=== PATIENT | female | born 1985 | race Caucasian/White ===

== ENCOUNTER 2016-09-04 18:52 | Emergency (ER) | payer MEDICAID ==
[2016-09-04 19:16] VITALS: BP 118/70
[2016-09-04] MEDS ORDERED: Sodium Chloride 0.9% 10 ML Syringe FLUSH PRN (19:28)
[2016-09-04] MEDS ORDERED: Insulin Regular, Human 100 Units/ML 3 ML Vial IVPUSH ONE (20:22)
[2016-09-04] MEDS ORDERED: Sodium Chloride 0.9% 1,000 ML IV SCH (20:30)
--- NOTE | 2016-09-04 20:34 | EDM.PDOC ---
ED HPI NEURO - General Chief Complaint: Neurological Problem Stated Complaint: POSS SEIZURE Time Seen by Provider: 09/04/16 19:11 Source of Information: Reports: Patient, RN notes reviewed - History of Present Illness INITIAL COMMENTS - FREE TEXT/NARRATIVE: 31-year-old female has been brought to the emergency department by a friend reported to have had generalized seizure a short time ago. She is 31 weeks , had been feeling fine earlier today. She does have history of known seizure disorder. She states that she had been on Keppra previously for seizure control but that has been stopped some time ago when she "lost her insurance" she has been on Klonopin which she states had helped her with stress, anxiety but also provided seizure control. Her last seizure to her recollection was over one year ago. With her she has been slowly tapering down on her dosage and is now down to a half milligram twice daily. Her has been going okay with no reported recent difficulties. She has no abdominal pain cramping or spotting at this time. She states she had no warning for the seizure. She was just sitting watching a movie or preparing to watch a movie with a friend. She did not injure her tongue and was not incontinent of urine. She states she did have cereal for breakfast, had some snacks and jellybeans throughout the afternoon and had just eaten supper of porkchops and potato not long before the seizure occurred. At this point she feels mildly drowsier and tired. No chest pain or difficulty breathing. Mild to moderate headache. - Related Data Allergies/ADRs: Allergies Allergy/AdvReac Type Severity Reaction Status Date / Time vancomycin Allergy Severe Burning Verified 09/04/16 19:09 ketorolac tromethamine Allergy Hives Verified 09/04/16 19:09 [From Toradol] sumatriptan [From Imitrex] Allergy Hives Verified 09/04/16 19:09 sumatriptan succinate Allergy Hives Verified 09/04/16 19:09 [From Imitrex] aripiprazole [From Abilify] AdvReac Tachycardia Verified 09/04/16 19:09 metoclopramide HCl AdvReac Anxiety Verified 09/04/16 19:09 [From Reglan] NSAIDS (Non-Steroidal AdvReac Tachycardia Verified 09/04/16 19:09 Anti-Inflamma pindolol AdvReac Tachycardia Verified 09/04/16 19:09 prednisone AdvReac Muscle Verified 09/04/16 19:09 Weakness abel mattson AdvReac Dizziness Uncoded 09/04/16 19:09 Home Meds: Home Meds ClonazePAM [KlonoPIN] 1 mg PO DAILY 01/14/16 [History] #103/Iron Fumarate/Fa [ ] 1 each PO DAILY 06/18/16 [ History] Past Medical History HEENT History: Reports: Impaired vision Cardiovascular History: Reports: Arrhythmia Other Cardiovascular History: SVT Respiratory History: Reports: Bronchitis, recurrent, Pneumonia, recurrent Genitourinary History: Reports: Pyelonephritis, Renal calculus [employer] History: Reports: Ectopic , Neurological History: Reports: Migraines Psychiatric History: Reports: Anxiety, Depression, Panic attack, Suicide attempt - Infectious Disease History Infectious Disease History: Reports: Chicken pox Other Infectious Disease History: septic - Past Surgical History Respiratory Surgical History: Reports: None GI Surgical History: Reports: Appendectomy, Other (see below) Other GI Surgeries/Procedures: chronic lower abd pain Neurological Surgical History: Reports: None Social & Family History - Family History Family Medical History: Noncontributory - Tobacco Use Smoking Status *Q: Former Smoker Years of Tobacco use: 1 Packs/Tins Daily: 0.2 Used Tobacco, but Quit: Yes Month Tobacco Last Used: 05/2105 Second Hand Smoke Exposure: Yes - Caffeine Use Caffeine Use: Reports: Soda - Alcohol Use Days Per Week of Alcohol Use: 0 Number of Drinks Per Day: 3 Total Drinks Per Week: 0 - Recreational Drug Use Recreational Drug Use: No Recreational Drug Type: Reports: Ativan - Living Situation & Occupation Living situation: Reports: , with family Occupation: unemployed (Recently returned back in [place] after spending 2 months in [place] with her father after he had open-heart surgery) ED ROS GENERAL - Review of Systems Review Of Systems: See Below Constitutional: Denies: fever, chills, diaphoresis HEENT: Denies: Sinus problem, Throat pain Respiratory: Denies: Shortness of Breath, Wheezing, Pleuritic Chest Pain Cardiovascular: Denies: Chest pain GI/Abdominal: Denies: Abdominal pain, Nausea, Vomiting : Reports: no symptoms Musculoskeletal: Reports: no symptoms Skin: Denies: rash Neurological: Reports: Dizziness, Headache. Denies: Numbness, Tingling, Trouble Speaking ED EXAM, NEURO - Physical Exam Exam: See Below General Appearance: alert, no apparent distress Eye Exam: bilateral eye: PERRL Ears: normal external exam Nose: normal inspection Throat/Mouth: Normal inspection, Other (No injury to the tongue, no other intraoral injury visible) Neck: supple, full range of motion Respiratory/Chest: no respiratory distress, lungs clear Cardiovascular: tachycardia GI/Abdominal: soft, non tender, other (Appropriately distended) Neurological: alert, normal mood/affect, no motor/sensory deficits Back Exam: No: CVA tenderness (L), CVA tenderness (R) Extremities: normal inspection, normal range of motion Skin Exam: Warm, Dry, Normal color, No rash Course - Vital Signs Last Recorded V/S: Last Vital Signs Temp 98.1 F 09/04/16 19:10 Pulse 105 H 09/04/16 19:10 Resp 18 09/04/16 19:10 BP 118/70 09/04/16 19:10 Pulse Ox 100 09/04/16 19:10 - Orders/Labs/Meds Orders: Active Orders 24 hr Category Date Time Status Peripheral IV Care [RC] . DIRECTED Care 09/04/16 19:28 Active Sodium Chloride 0.9% [Normal Saline] 1,000 ml Med 09/04/16 20:30 Active IV ONETIME Sodium Chloride 0.9% [Saline Flush] Med 09/04/16 19:28 Active 10 ml FLUSH ASDIRECTED PRN Peripheral IV Insertion Adult [OM.PC] Stat Oth 09/04/16 19:28 Ordered Medication Orders Sodium Chloride (Normal Saline) 1,000 mls @ 999 mls/hr IV ONETIME [facility] Last Admin: 09/04/16 20:25 Dose: 999 mls/hr Sodium Chloride (Saline Flush) 10 ml FLUSH ASDIRECTED PRN PRN Reason: Keep Vein Open Last Admin: 09/04/16 20:25 Dose: 10 ml Labs: Laboratory Tests 09/04/16 09/04/16 09/04/16 Range/Units 19:42 19:42 20:53 WBC 19.89 H (3.98-10.04) K/mm3 RBC 3.70 L (3.98-5.22) M/mm3 Hgb 11.1 L (11.2-15.7) gm/L Hct 33.7 L (34.1-44.9) % MCV 91.1 (79.4-94.8) fl MCH 30.0 (25.6-32.2) pg MCHC 32.9 (32.2-35.5) g/dl RDW Std Deviation 43.4 (36.4-46.3) fL Plt Count 392 H (182-369) K/mm3 MPV 11.7 (9.4-12.3) fl Neut % (Auto) 65.3 (34.0-71.1) % Lymph % (Auto) 21.2 (19.3-51.7) % [place] % (Auto) 9.9 (4.7-12.5) % Eos % (Auto) 2.5 (0.7-5.8) Baso % (Auto) 0.2 (0.1-1.2) % Neut # (Auto) 13.02 H (1.56-6.13) K/mm3 Lymph # (Auto) 4.22 H (1.18-3.74) K/mm3 [place] # (Auto) 1.96 H (0.24-0.36) K/mm3 Eos # (Auto) 0.49 H (0.04-0.36) K/mm3 Baso # (Auto) 0.03 (0.01-0.08) K/mm3 Manual Slide Review Abnormal smear Sodium 140 (136-145) mEq/L Potassium 3.6 (3.5-5.1) mEq/L Chloride 105 (98-107) mEq/L Carbon Dioxide 23 (21-32) mEq/L Anion Gap 15.6 H (5-15) BUN 8 (7-18) mg/dL Creatinine 0.5 L (0.55-1.02) mg/dL Est Cr Clr Drug Dosing 154.01 mL/min Estimated GFR (MDRD) > 60 (>60) mL/min BUN/Creatinine Ratio 16.0 (14-18) Glucose 80 (74-106) mg/dL POC Glucose 81 (70-105) mg/dL Calcium 7.8 L (8.5-10.1) mg/dL Total Bilirubin 0.3 (0.2-1.0) mg/dL AST 51 H (15-37) U/L ALT 52 (14-59) U/L Alkaline Phosphatase 130 H (46-116) U/L Total Protein 5.3 L (6.4-8.2) g/dl Albumin 3.0 L (3.4-5.0) g/dl Globulin 2.3 gm/dL Albumin/Globulin Ratio 1.3 (1-2) 09/04/16 09/04/16 Range/Units 22:02 23:08 WBC (3.98-10.04) K/mm3 RBC (3.98-5.22) M/mm3 Hgb (11.2-15.7) gm/L Hct (34.1-44.9) % MCV (79.4-94.8) fl MCH (25.6-32.2) pg MCHC (32.2-35.5) g/dl RDW Std Deviation (36.4-46.3) fL Plt Count (182-369) K/mm3 MPV (9.4-12.3) fl Neut % (Auto) (34.0-71.1) % Lymph % (Auto) (19.3-51.7) % [place] % (Auto) (4.7-12.5) % Eos % (Auto) (0.7-5.8) Baso % (Auto) (0.1-1.2) % Neut # (Auto) (1.56-6.13) K/mm3 Lymph # (Auto) (1.18-3.74) K/mm3 [place] # (Auto) (0.24-0.36) K/mm3 Eos # (Auto) (0.04-0.36) K/mm3 Baso # (Auto) (0.01-0.08) K/mm3 Manual Slide Review Sodium (136-145) mEq/L Potassium (3.5-5.1) mEq/L Chloride (98-107) mEq/L Carbon Dioxide (21-32) mEq/L Anion Gap (5-15) BUN (7-18) mg/dL Creatinine (0.55-1.02) mg/dL Est Cr Clr Drug Dosing mL/min Estimated GFR (MDRD) (>60) mL/min BUN/Creatinine Ratio (14-18) Glucose (74-106) mg/dL POC Glucose 129 H 106 H (70-105) mg/dL Calcium (8.5-10.1) mg/dL Total Bilirubin (0.2-1.0) mg/dL AST (15-37) U/L ALT (14-59) U/L Alkaline Phosphatase (46-116) U/L Total Protein (6.4-8.2) g/dl Albumin (3.4-5.0) g/dl Globulin gm/dL Albumin/Globulin Ratio (1-2) Meds: Medications Generic Name Dose Route Start Last Admin Trade Name Freq PRN Reason Stop Dose Admin Sodium Chloride 1,000 mls @ 999 mls/hr 09/04/16 20:30 09/04/16 20:25 Normal Saline IV 999 mls/hr ONETIME [facility]OFFI Administration Sodium Chloride 10 ml 09/04/16 19:28 09/04/16 20:25 Saline Flush FLUSH 10 ml ASDIRECTED PRN Administration Keep Vein Open Discontinued Medications Generic Name Dose Route Start Last Admin Trade Name Freq PRN Reason Stop Dose Admin Acetaminophen 975 mg 09/04/16 22:05 09/04/16 22:10 Tylenol PO 09/04/16 22:06 975 mg NOW ONE Administration Insulin Human Regular 3 unit 09/04/16 20:22 09/04/16 20:34 Humulin R IVPUSH 09/04/16 20:23 3 units ONETIME ONE Administration Protocol - Re-Assessments/Exams Free Text/Narrative Re-Assessment/Exam: 09/04/16 20:22. Surprisingly her blood sugar has come back elevated at 535. Anion gap is mildly elevated at 16, CO2 is 19, potassium 5.0. heart tones are good at 144. She states BP has been moving. She continues to have no abdominal pain, cramping, vaginal bleeding, nausea or vomiting. Blood pressure has been good in the 118-120 systolic range. BUN was elevated at 79, creatinine 2.2. I do have a liter of fluid running wide open. We've given insulin 3 units regular IV. The seizure is likely pushed her glucoses higher she has no awareness of prior hyperglycemia or diabetes. This is presumed to be gestational diabetes at this time. I will plan to have her admitted for continued monitoring and treatment of her diabetes, dehydration and mild renal insufficiency. 21:40. Labs for a different patient to come back for different from what was expected. He is known to have hyperglycemia prior to arrival and also on arrival in yet a different patient's glucose is reported at 93. Therefore I suspect that there has been some lab error running the results for these 2 patients. I'm worried that her readings are 4 or by patient with a known hyperglycemia and expected renal insufficiency, dehydration. When I have checked with lab they acknowledge that they must of gotten the labels switched on these 2 patients. I'm going to have lab redraw and rerun everything for both of these patients. Fortunately Rosario does remember eating shortly before the seizure. We checked at bedside glucose just a few minutes ago that read out at 81. We've given her some orange juice with sugar. We're going to get her a sandwich. She remains alert, normal mental status no acute distress at this time. 09/04/16 21:55. She's been eating, drinking, resting comfortably repeat glucose a short time ago was around 123. Plan to watch her for another hour and repeat glucose about one hour from the last draw. If blood sugar remains stable as expected then we will plan to discharge her home at that time. 09/04/16 23:13. Repeat glucose 106. Patient continues to be asymptomatic while here in the ED. Discharge instructions as documented Departure - Departure Time of Disposition: 23:00 Disposition: Home, Self-Care 01 Condition: fair Clinical Impression: Third trimester , Generalized seizure Referrals: Analilia Brown DO [Primary Care Provider] - Forms: ED Department Discharge Additional Instructions: Rest, continue to drink plenty of fluids, continue to eat regular meals and snacks, at this point you should not drive until given medical clearance to do so, see Dr. Brown early this week, call for appointment, see Dr. Tafoya early next week as planned, return to ED as needed - My Orders Last 24 Hours: My Active Orders 09/04/16 19:28 Peripheral IV Care [RC] . DIRECTED Sodium Chloride 0.9% [Saline Flush] 10 ml FLUSH ASDIRECTED PRN Peripheral IV Insertion Adult [OM.PC] Stat 09/04/16 20:30 Sodium Chloride 0.9% [Normal Saline] 1,000 ml IV ONETIME - Assessment/Plan Last 24 Hours: My Active Orders 09/04/16 19:28 Peripheral IV Care [RC] . DIRECTED Sodium Chloride 0.9% [Saline Flush] 10 ml FLUSH ASDIRECTED PRN Peripheral IV Insertion Adult [OM.PC] Stat 09/04/16 20:30 Sodium Chloride 0.9% [Normal Saline] 1,000 ml IV ONETIME
[2016-09-04] MEDS ORDERED: Acetaminophen 325 MG Tab PO ONE (22:05)
== END 2016-09-04 23:28 | disposition home or self-care (01) ==
LOC: JD.ED 18:52
DX: O99.353 Diseases of the nervous system complicating pregnancy, third trimester (principal); G40.409 Other generalized epilepsy and epileptic syndromes, not intractable, without status epilepticus; F41.9 Anxiety disorder, unspecified; F32.9 Major depressive disorder, single episode, unspecified; Z87.01 Personal history of pneumonia (recurrent); Z90.49 Acquired absence of other specified parts of digestive tract; Z88.5 Allergy status to narcotic agent; Z88.1 Allergy status to other antibiotic agents; Z87.891 Personal history of nicotine dependence; Z3A.31 31 weeks gestation of pregnancy
CPT/HCPCS: 36415; 80053; 82962; 85025; 96361; 96374; 99284; A9270; J1817; J7040; J7050

== ENCOUNTER 2016-10-10 21:55 | Emergency (ER) | payer MEDICAID ==
[2016-10-10 22:26] VITALS: BP 104/76
--- NOTE | 2016-10-10 22:50 | EDM.PDOC ---
ED HPI GENERAL MEDICAL PROBLEM - General Chief Complaint: Respiratory Problem Stated Complaint: COUGH & CONGESTION Time Seen by Provider: 10/10/16 22:50 - History of Present Illness INITIAL COMMENTS - FREE TEXT/NARRATIVE: 31-year-old female presents emergency room with a cough. Patient is getting sicker. Patient is worsening cough over the last 2 weeks. The patient is 37 weeks . She has not been able to followup with her OB as she's been out of town with sick family members. She recently arrived back and. The patient has a cough at times is productive. She has brought up some pink sputum and at times blood-tinged sputum. The blood-tinged been started today. She has not had any fevers may have had some chills. She's not had any nausea or vomiting no diarrhea. Patient denies any burning or frequency with urination activity is normal. Generalized Pain Score (Numeric/FACES): 8 - Related Data Allergies Allergy/AdvReac Type Severity Reaction Status Date / Time vancomycin Allergy Severe Burning Verified 10/10/16 22:27 ketorolac tromethamine Allergy Hives Verified 10/10/16 22:27 [From Toradol] sumatriptan [From Imitrex] Allergy Hives Verified 10/10/16 22:27 sumatriptan succinate Allergy Hives Verified 10/10/16 22:27 [From Imitrex] aripiprazole [From Abilify] AdvReac Tachycardia Verified 10/10/16 22:27 metoclopramide HCl AdvReac Anxiety Verified 10/10/16 22:27 [From Reglan] NSAIDS (Non-Steroidal AdvReac Tachycardia Verified 10/10/16 22:27 Anti-Inflamma pindolol AdvReac Tachycardia Verified 10/10/16 22:27 prednisone AdvReac Muscle Verified 10/10/16 22:27 Weakness [place] srinivasan AdvReac Dizziness Uncoded 10/10/16 22:27 Home Meds: Home Meds ClonazePAM [KlonoPIN] 1 mg PO DAILY 01/14/16 [History] #103/Iron Fumarate/Fa [ ] 1 each PO DAILY 06/18/16 [ History] Azithromycin [Zithromax] 250 mg PO DAILY #4 tablet 10/10/16 [Rx] Past Medical History HEENT History: Reports: Impaired Vision Cardiovascular History: Reports: Arrhythmia Other Cardiovascular History: SVT Respiratory History: Reports: Bronchitis, Recurrent, Pneumonia, Recurrent Genitourinary History: Reports: Pyelonephritis, Renal Calculus [employer] WOM[employer] History: Reports: Ectopic , Neurological History: Reports: Migraines Psychiatric History: Reports: Anxiety, Depression, Panic Attack, Suicide Attempt - Infectious Disease History Infectious Disease History: Reports: Chicken Pox Other Infectious Disease History: septic - Past Surgical History GI Surgical History: Reports: Appendectomy, Other (See Below) Social & Family History - Family History Family Medical History: Noncontributory - Tobacco Use Smoking Status *Q: Never Smoker Years of Tobacco use: 1 Packs/Tins Daily: 0.2 Used Tobacco, but Quit: Yes Month Tobacco Last Used: 05/2105 Second Hand Smoke Exposure: No - Caffeine Use Caffeine Use: Reports: Soda - Alcohol Use Days Per Week of Alcohol Use: 0 Number of Drinks Per Day: 3 Total Drinks Per Week: 0 - Recreational Drug Use Recreational Drug Use: No Recreational Drug Type: Reports: Ativan - Living Situation & Occupation Living situation: Reports: , with Family Occupation: Unemployed ED ROS GENERAL - Review of Systems Review Of Systems: See Below Constitutional: Denies: Fever HEENT: Reports: Sinus Problem. Denies: Ear Pain, Eye Pain Respiratory: Reports: Cough, Sputum. Denies: Shortness of Breath Cardiovascular: Denies: Chest Pain, Dyspnea on Exertion GI/Abdominal: Reports: No Symptoms : Reports: No Symptoms, Other (Denies cramping or contractions) ED EXAM, GENERAL - Physical Exam Exam: See Below Exam Limited By: No Limitations General Appearance: Alert, No Apparent Distress Ears: Normal External Exam, Normal Canal, Hearing Grossly Normal, Normal TMs Nose: Normal Inspection, Normal Mucosa, No Blood Throat/Mouth: Normal Inspection, Normal Lips, Normal Teeth, Normal Gums, Normal Oropharynx, Normal Voice, No Airway Compromise Head: Atraumatic, Normocephalic Neck: Normal Inspection, Supple, Non-Tender, Full Range of Motion Respiratory/Chest: No Respiratory Distress, Lungs Clear, Normal Breath Sounds Cardiovascular: Regular Rate, Rhythm, No Edema, No Murmur GI/Abdominal: Normal Bowel Sounds, Soft, Non-Tender, Other (Near-term heart tones are audible 150 beats per minute) Course - Vital Signs Last Recorded V/S: Last Vital Signs Temp 36.4 C 10/10/16 22:23 Pulse 120 H 10/10/16 22:23 Resp 14 10/10/16 22:23 BP 104/76 10/10/16 22:23 Pulse Ox 99 10/10/16 22:23 - Orders/Labs/Meds Meds: Medications Discontinued Medications Generic Name Dose Route Start Last Admin Trade Name Michelle PRN Reason Stop Dose Admin Azithromycin 500 mg 10/11/16 23:02 Zithromax PO 10/11/16 23:03 ONETIME ONE Azithromycin 500 mg 10/10/16 23:25 10/10/16 23:33 Zithromax PO 10/10/16 23:26 500 mg ONETIME ONE Administration - Re-Assessments/Exams Free Text/Narrative Re-Assessment/Exam: 10/10/16 23:01 Patient can't be imaged because of the advanced . Patient start on Zithromax she received 500 mg in the emergency department given a prescription for the remaining 4 days. Patient is on followup with Dr. Tafoya because of illness in the family. I discussed situation with Dr. petersen who gave us the extension to call me the message so they can get a hold of Susan and schedule an appointment right away. Departure - Departure Time of Disposition: 23:04 Disposition: Home, Self-Care 01 Clinical Impression: Bronchitis - Discharge Information Prescriptions: Azithromycin [Zithromax] 250 mg PO DAILY #4 tablet Referrals: Analilia Brown DO [Primary Care Provider] - Durga Tafoya MD [Physician] - Forms: ED Department Discharge Additional Instructions: Return to the emergency room with any questions or problems. Followup with Dr. Tafoya this week. He been started on an antibiotic for your cough, this is Zithromax, take one daily starting Monday until all gone
[2016-10-10] MEDS ORDERED: Azithromycin 250 MG Tab PO ONE (23:25)
[2016-10-11] MEDS ORDERED: Azithromycin 250 MG Tab PO ONE (23:02)
== END 2016-10-11 00:10 | disposition home or self-care (01) ==
LOC: JD.ED 21:55
DX: O99.513 Diseases of the respiratory system complicating pregnancy, third trimester (principal); J40 Bronchitis, not specified as acute or chronic; Z88.1 Allergy status to other antibiotic agents; Z88.8 Allergy status to other drugs, medicaments and biological substances; Z79.899 Other long term (current) drug therapy; Z87.01 Personal history of pneumonia (recurrent); Z3A.37 37 weeks gestation of pregnancy
CPT/HCPCS: 99283; A9270

== ENCOUNTER 2016-10-15 18:50 | Inpatient (IN) | payer MEDICAID ==
[2016-10-15] MEDS ORDERED: Acetaminophen/Codeine 300-30 MG Tab PO ONE (21:16)
[2016-10-15] MEDS ORDERED: Oxytocin/Lactated Ringers 10 UNIT/1,000 ML BAG IV SCH (23:45)
[2016-10-15] MEDS ORDERED: Sodium Chloride 0.9% 10 ML Syringe FLUSH PRN (23:46)
[2016-10-15] MEDS ORDERED: Ampicillin 2 GM in Sodium Chloride 0.9% 100 ML IV ONE (23:46)
[2016-10-16] MEDS: Lactated Ringers 1,000 ML IV SCH ×5 (00:12→20:12)
--- NOTE | 2016-10-16 00:21 | PCM.LDHP ---
L&D History of Present Illness - General Date of Service: 10/15/16 Admit Problem/Dx: Patient Status Order with Admit Dx/Problem 10/15/16 19:54 Patient Status [ADT] Routine 10/15/16 23:46 Patient Status [ADT] Routine Admission Diagnosis/Problem Admission Diagnosis/Problem 10/16/16 00:11 36-1/7 week intrauterine , early labor Source of Information: Patient History Limitations: Reports: No Limitations - History of Present Illness Introduction:: Susan is a 31-year-old 5 para 3013 white female is presently at 36-1/ 7 weeks gestational age is based upon an KALEB of 11/04/2016 which is determined by an ultrasound done on 08/04/2016. This is done at 27 weeks gestational age which was her first visit. She's been maria del rosario through most of the day and was admitted on the evening of 10/15/2016. She changed her cervix from 1 cm to 3 cm, 80%, cephalic presentation, mid position, soft, -2 station. She is reporting back pain and abdominal contractions. heart tones are reassuring. 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 Last menstrual period unknown. Ultrasound done 08/08/2016 has given a due date of 11/04/2016. Patient has not been seen on a regular basis in clinic due to noncompliance. She has had only one visit in clinic but has had several visits in labor and delivery. These usually for false labor or for abdominal/back pain. She has history of HPV. Also irritable bowel syndrome. She plans to bottlefeed. She has a seizure disorder. Presently is taking Klonopin 1 mg orally daily for this. Laboratory testing shows blood to be B+, negative antibody screen. Her hemoglobin was 11 g/dL and patient was advised to get on iron sulfate. Her platelets were 404,000. Pap smear is negative. Her rubella titer was equivocal- patient candidate for MMR. RPR is nonreactive. Urine culture negative. Hepatitis B and HIV assays negative. Chlamydia and gonorrhea assays negative. Allergies: 1. Vancomycin-tachycardia 2. Toradol-hives 3. Imitrex-hives 4. Abilify-tachycardia 5. Reglan solution-other type of reaction unknown 6. NSAIDs-tachycardia 7. Pindolol-dizziness 8. Prednisone-unknown reaction Medications: 1. Clonopin-1 mg daily 2. Metoprolol succinate ER 50 mg oral rlvlihc-kympilrk-feptyuq-24-hour-1 daily 3. vitamins-daily Past medical history: 1. Seizure disorder 5 years ago 2. Anxiety/depression with suicide attempt 2013 3. depression 4. Blood transfusion 2011 5. Irritable bowel syndrome 6. History of cervical abnormality status post loop like surgical excision procedure Past surgical history: 1. Splenectomy 2011 2. Appendectomy 2015 3. Laparoscopy 2015. Family history: Mother is alive and well. Father is alive with heart problems and has had a stent placed. Also with diabetes mellitus and rheumatoid arthritis. One brother is alive and well. One brother is secondary to methadone overdose. Maternal grandmother is alive and well but with bladder problems. Paternal grandfather secondary to diabetes complications. Paternal grandmother is alive but medical history is unknown. Paternal grandfather is alive and health history is unknown. No bleeding, clotting, and a seizure problems noted in the family. Social history: Patient is , lives in [place]. is Yash Bales. Patient has history of previous drug abuse including marijuana. She does not work outside the home. Review of systems: In general patient is having discomfort set her back and abdomen and are described as contractions with pain in between. Also reporting bleeding from the vagina. Skin-negative Cardiovascular-no chest pain or exercise tolerance Respiratory-no shortness of breath or infectious of the Breasts-changes associated with only GI-normal with the exception of irritable bowel syndrome symptoms on occasion -changes associated with Musculoskeletal-negative Neurological-negative Physical exam. Height is 5 feet 6. Prepregnancy weight was 132 with a BMI of 20.2. In general patient is a well-developed, well-nourished, doesn't seem looks somewhat older than stated age. She is in discomfort secondary to labor. Skin is warm dry without lesions. Patient is dark circles under her eyes. HEENT, neck and back otherwise within normal limits Lungs are clear with good breath sounds in all lung hdz. Cardiovascular exam shows regular and rhythm without murmurs. Breasts exam is deferred-was done at [place] first visit and found to be normal. Abdomen is to have with fundal height consistent with approximately 35 weeks gestation. Genital exam shows cervix to be 3 cm/80% effaced/-2 station/ midposition/cephalic presentation/soft. Extremities and neurological exam are grossly within normal limits Pain Score: 10 - Related Data Allergies/Adverse Reactions: Allergies Allergy/AdvReac Type Severity Reaction Status Date / Time vancomycin Allergy Severe Burning Verified 10/10/16 22:27 ketorolac tromethamine Allergy Hives Verified 10/10/16 22:27 [From Toradol] sumatriptan [From Imitrex] Allergy Hives Verified 10/10/16 22:27 sumatriptan succinate Allergy Hives Verified 10/10/16 22:27 [From Imitrex] aripiprazole [From Abilify] AdvReac Tachycardia Verified 10/10/16 22:27 metoclopramide HCl AdvReac Anxiety Verified 10/10/16 22:27 [From Reglan] NSAIDS (Non-Steroidal AdvReac Tachycardia Verified 10/10/16 22:27 Anti-Inflamma pindolol AdvReac Tachycardia Verified 10/10/16 22:27 prednisone AdvReac Muscle Verified 10/10/16 22:27 Weakness [place] srinivasan AdvReac Dizziness Uncoded 10/10/16 22:27 Home Medications: Home Meds ClonazePAM [KlonoPIN] 1 mg PO DAILY 01/14/16 [History] #103/Iron Fumarate/Fa [ ] 1 each PO DAILY 06/18/16 [ History] Azithromycin [Zithromax] 250 mg PO DAILY #4 tablet 10/10/16 [Rx] Past Medical History HEENT History: Reports: Impaired Vision Cardiovascular History: Reports: Arrhythmia Other Cardiovascular History: SVT Respiratory History: Reports: Bronchitis, Recurrent, Pneumonia, Recurrent Genitourinary History: Reports: Pyelonephritis, Renal Calculus 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 History: Reports: Ectopic , Neurological History: Reports: Migraines Psychiatric History: Reports: Anxiety, Depression, Panic Attack, Suicide Attempt - Infectious Disease History Infectious Disease History: Reports: Chicken Pox Other Infectious Disease History: septic - Past Surgical History GI Surgical History: Reports: Appendectomy, Other (See Below) Social & Family History - Family History Family Medical History: Noncontributory - Tobacco Use Smoking Status *Q: Never Smoker Years of Tobacco use: 1 Packs/Tins Daily: 0.2 Used Tobacco, but Quit: Yes Month Tobacco Last Used: 05/2105 Second Hand Smoke Exposure: No - Caffeine Use Caffeine Use: Reports: Soda - Alcohol Use Days Per Week of Alcohol Use: 0 Number of Drinks Per Day: 3 Total Drinks Per Week: 0 - Recreational Drug Use Recreational Drug Use: No Recreational Drug Type: Reports: Ativan - Living Situation & Occupation Living situation: Reports: , with Family Occupation: Unemployed H&P Review of Systems - Review of Systems: Review Of Systems: See Below L&D Exam - Exam Exam: See Below - Vital Signs Weight: 67.948 kg - Patient Data Lab Results last 24 hrs: Laboratory Results - last 24 hr 10/15/16 10/15/16 10/15/16 Range/Units 20:15 20:15 23:55 WBC 12.70 H (3.98-10.04) K/mm3 RBC 4.04 (3.98-5.22) M/mm3 Hgb 11.0 L (11.2-15.7) gm/L Hct 34.1 (34.1-44.9) % MCV 84.4 (79.4-94.8) fl MCH 27.2 (25.6-32.2) pg MCHC 32.3 (32.2-35.5) g/dl RDW Std Deviation 42.3 (36.4-46.3) fL Plt Count 365 (182-369) K/mm3 MPV 13.0 H (9.4-12.3) fl Urine Color Light yellow (Yellow) Urine Appearance Clear (Clear) Urine pH 6.5 (5.0-8.0) Ur Specific [place] 1.010 (1.005-1.030) Urine Protein Negative (Negative) Urine Glucose (UA) Negative (Negative) Urine Ketones Negative (Negative) Urine Occult Blood 2+ H (Negative) Urine Nitrite Negative (Negative) Urine Bilirubin Negative (Negative) Urine Urobilinogen 0.2 (0.2-1.0) Ur Leukocyte Esterase Negative (Negative) Urine RBC 0-5 (0-5) /hpf Urine WBC 0-5 (0-5) /hpf Ur Epithelial Cells Not Reportable Ur Squamous Epith Cells 0-5 (0-5) /hpf Urine Bacteria Few (FEW) /hpf Urine Mucus Not Reportable Urine Opiates Screen Negative (NEGATIVE) Ur Buprenorphine Scrn Negative (NEGATIVE) Ur Oxycodone Screen Negative (NEGATIVE) Urine Methadone Screen Negative (NEGATIVE) Ur Propoxyphene Screen Negative (NEGATIVE) Ur Barbiturates Screen Negative (NEGATIVE) Ur Tricyclics Screen Negative (NEGATIVE) Ur Phencyclidine Scrn Negative (NEGATIVE) Ur Amphetamine Screen Negative (NEGATIVE) U Methamphetamines Scrn Negative (NEGATIVE) U Benzodiazepines Scrn Negative (NEGATIVE) U Cocaine Metab Screen Negative (NEGATIVE) U Marijuana (THC) Screen Negative (NEGATIVE) Result Diagrams: 10/15/16 23:55 Problem List Initiated/Reviewed/Updated: Yes Orders Last 24hrs: Active Orders 24 hr Category Date Time Status Patient Status [ADT] Routine ADT 10/15/16 23:46 Active Activity as Tolerated [RC] PFP Care 10/15/16 23:46 Active Communication Order [RC] ASDIRECTED Care 10/15/16 23:46 Active Heart Tones [RC] ASDIRECTED Care 10/15/16 23:46 Active Non Stress Test [RC] PER UNIT ROUTINE Care 10/15/16 19:54 Active Notify Provider [RC] PFP Care 10/15/16 23:46 Active Notify Provider [RC] PRN Care 10/15/16 23:46 Active Peripheral IV Care [RC] . DIRECTED Care 10/15/16 23:46 Active Vital Signs [RC] PER UNIT ROUTINE Care 10/15/16 19:54 Active Vital Signs [RC] PER UNIT ROUTINE Care 10/15/16 23:46 Active CULTURE URINE [RM] Routine Lab 10/15/16 20:15 Received Ampicillin 1 gm Med 10/16/16 04:00 Active Sodium Chloride 0.9% [Normal Saline] 100 ml IV Q4H Ampicillin 2 gm Med 10/15/16 23:46 Active Sodium Chloride 0.9% [Normal Saline] 100 ml IV ONETIME Lactated Ringers [Ringers, Lactated] 1,000 ml Med 10/15/16 23:45 Active IV ASDIRECTED Oxytocin/Lactated Ringers [Pitocin in LR 10 Units/1,000 Med 10/15/16 23:45 Active ML] 10 unit in 1,000 ml IV TITRATE Sodium Chloride 0.9% [Saline Flush] Med 10/15/16 23:46 Active 10 ml FLUSH ASDIRECTED PRN Electronic Heart Tones Ext w TOCO [WOMSER] Oth 10/15/16 23:46 Ordered Routine Electronic Heart Tones Internal [WOMSER] Per Unit Oth 10/15/16 23:46 Ordered Routine Peripheral IV Insertion Adult [OM.PC] Routine Oth 10/15/16 23:46 Ordered Resuscitation Status Routine Resus Stat 10/15/16 19:54 Ordered Medication Orders Lactated Ringer's (Ringers, Lactated) 1,000 mls @ 100 mls/hr IV ASDIRECTED [facility] Oxytocin/Lactated Ringer's (Pitocin In Lr 10 Units/1,000 Ml) 10 unit in 1,000 mls @ 500 mls/hr IV TITRATE KOFFI Ampicillin Sodium 2 gm/ Sodium (Chloride) 100 mls @ 200 mls/hr IV ONETIME ONE Stop: 10/16/16 00:15 Ampicillin Sodium 1 gm/ Sodium (Chloride) 100 mls @ 200 mls/hr IV Q4H KOFFI Sodium Chloride (Saline Flush) 10 ml FLUSH ASDIRECTED PRN PRN Reason: Keep Vein Open Assessment/Plan Comment:: Assessment: 1. 36-1/7 week intrauterine with change in cervix, contractions and back and abdominal discomfort consistent with labor. 2. History of previous drug use including marijuana. 3. She has had only 1 visit in clinic during the course of this . 4. History of noncompliance with previous pregnancies. 5. History of seizure disorder on Klonopin 6. History of tachycardia on metoprolol 7. Patient giving baby up for adoption 8. Does not appliance from nursing 9. Group B strep status unknown-secondary to noncompliance with clinic visits 10. Rubella immune status-equivocal Plan: 1. We'll monitor of labor. Anticipate normal spontaneous vaginal delivery 2. Group B strep prophylaxis with ampicillin per protocol 3. Epidural when necessary for pain 4. 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 5. Obtain cord blood for drug screen. 6. Rubella equivocal-patient will receive an MMR prior to discharge after delivery
[2016-10-16] MEDS ORDERED: Sodium Chloride 0.9% 200 ML ONE (00:39)
[2016-10-16] MEDS ORDERED: ePHEDrine 50 MG/ML SDV IVPUSH PRN (01:13)
[2016-10-16] MEDS ORDERED: Ondansetron 4 MG/2 ML SDV IVPUSH PRN (01:13)
[2016-10-16] MEDS ORDERED: fentaNYL 100 MCG/2 ML SDV EPIDUR PRN (01:13)
--- NOTE | 2016-10-16 01:20 | PCM.PREANE ---
Preanesthetic Assessment - Anesthesia/Transfusion/Family Hx Anesthesia History: Prior Anesthesia Without Reaction Family History of Anesthesia Reaction: No Transfusion History: Prior Transfusion Without Reaction Intubation History: Unknown - Review of Systems General: No Symptoms Pulmonary: No Symptoms Cardiovascular: No Symptoms (history of tachycardia and does take beta brandon pre-), Palpitations, Orthopnea Gastrointestinal: No symptoms (GERD) Neurological: Seizure (Seizure noted end of July with Clonipin titration.) Other: Reports: Easy Bruising, Depression, Anxiety - Physical Assessment NPO Status Date: 10/16/16 NPO Status Time: 00:50 Pulse: 114 O2 Sat by Pulse Oximetry: 99 Respiratory Rate: 20 Blood Pressure: 104/71 Temperature: 37.1 C Height: 1.68 m Weight: 67.948 kg ASA Class: 2 Mental Status: Alert & Oriented x3 Airway Class: Mallampati = 2 Dentition: Reports: Normal Dentition, Caries Thyro-Mental Finger Breadths: 3 Mouth Opening Finger Breadths: 3 ROM/Head Extension: Full Lungs: Clear to auscultation, Normal respiratory effort Cardiovascular: Regular Rate, Regular Rhythm - Lab Values: Laboratory Last Values WBC 12.70 K/mm3 (3.98-10.04) H 10/15/16 23:55 RBC 4.04 M/mm3 (3.98-5.22) 10/15/16 23:55 Hgb 11.0 gm/L (11.2-15.7) L 10/15/16 23:55 Hct 34.1 % (34.1-44.9) 10/15/16 23:55 MCV 84.4 fl (79.4-94.8) 10/15/16 23:55 MCH 27.2 pg (25.6-32.2) 10/15/16 23:55 MCHC 32.3 g/dl (32.2-35.5) 10/15/16 23:55 RDW Std Deviation 42.3 fL (36.4-46.3) 10/15/16 23:55 Plt Count 365 K/mm3 (182-369) 10/15/16 23:55 MPV 13.0 fl (9.4-12.3) H 10/15/16 23:55 Urine Color Light yellow (Yellow) 10/15/16 20:15 Urine Appearance Clear (Clear) 10/15/16 20:15 Urine pH 6.5 (5.0-8.0) 10/15/16 20:15 Ur Specific [place] 1.010 (1.005-1.030) 10/15/16 20:15 Urine Protein Negative (Negative) 10/15/16 20:15 Urine Glucose (UA) Negative (Negative) 10/15/16 20:15 Urine Ketones Negative (Negative) 10/15/16 20:15 Urine Occult Blood 2+ (Negative) H 10/15/16 20:15 Urine Nitrite Negative (Negative) 10/15/16 20:15 Urine Bilirubin Negative (Negative) 10/15/16 20:15 Urine Urobilinogen 0.2 (0.2-1.0) 10/15/16 20:15 Ur Leukocyte Esterase Negative (Negative) 10/15/16 20:15 Urine RBC 0-5 /hpf (0-5) 10/15/16 20:15 Urine WBC 0-5 /hpf (0-5) 10/15/16 20:15 Ur Epithelial Cells Not Reportable 10/15/16 20:15 Ur Squamous Epith Cells 0-5 /hpf (0-5) 10/15/16 20:15 Urine Bacteria Few /hpf (FEW) 10/15/16 20:15 Urine Mucus Not Reportable 10/15/16 20:15 Urine Opiates Screen Negative (NEGATIVE) 10/15/16 20:15 Ur Buprenorphine Scrn Negative (NEGATIVE) 10/15/16 20:15 Ur Oxycodone Screen Negative (NEGATIVE) 10/15/16 20:15 Urine Methadone Screen Negative (NEGATIVE) 10/15/16 20:15 Ur Propoxyphene Screen Negative (NEGATIVE) 10/15/16 20:15 Ur Barbiturates Screen Negative (NEGATIVE) 10/15/16 20:15 Ur Tricyclics Screen Negative (NEGATIVE) 10/15/16 20:15 Ur Phencyclidine Scrn Negative (NEGATIVE) 10/15/16 20:15 Ur Amphetamine Screen Negative (NEGATIVE) 10/15/16 20:15 U Methamphetamines Scrn Negative (NEGATIVE) 10/15/16 20:15 U Benzodiazepines Scrn Negative (NEGATIVE) 10/15/16 20:15 U Cocaine Metab Screen Negative (NEGATIVE) 10/15/16 20:15 U Marijuana (THC) Screen Negative (NEGATIVE) 06/03/17 20:15 Above labs reviewed and noted. - Allergies Allergies/Adverse Reactions: Allergies Allergy/AdvReac Type Severity Reaction Status Date / Time vancomycin Allergy Severe Burning Verified 10/16/16 00:36 ketorolac tromethamine Allergy Hives Verified 10/16/16 00:36 [From Toradol] sumatriptan [From Imitrex] Allergy Hives Verified 10/16/16 00:36 sumatriptan succinate Allergy Hives Verified 10/16/16 00:36 [From Imitrex] aripiprazole [From Abilify] AdvReac Tachycardia Verified 10/16/16 00:36 metoclopramide HCl AdvReac Anxiety Verified 10/16/16 00:36 [From Reglan] NSAIDS (Non-Steroidal AdvReac Tachycardia Verified 10/16/16 00:36 Anti-Inflamma pindolol AdvReac Tachycardia Verified 10/16/16 00:36 prednisone AdvReac Muscle Verified 10/16/16 00:36 Weakness [place] srinivasan AdvReac Dizziness Uncoded 10/10/16 22:27 - Anesthesia Plan Pre-Op Medication Ordered: None - Acknowledgements Anesthesia Type Planned: Epidural Pt an Appropriate Candidate for the Planned Anesthesia: Yes Alternatives and Risks of Anesthesia Discussed w Pt/Guardian: Yes Pt/Guardian Understands and Agrees with Anesthesia Plan: Yes PreAnesthesia Questionnaire HEENT History: Reports: Impaired Vision Cardiovascular History: Reports: Arrhythmia Other Cardiovascular History: SVT Respiratory History: Reports: Bronchitis, Recurrent, Pneumonia, Recurrent Genitourinary History: Reports: Pyelonephritis, Renal Calculus 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: 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 , Neurological History: Reports: Migraines Psychiatric History: Reports: Anxiety, Depression, Panic Attack, Suicide Attempt - Infectious Disease History Infectious Disease History: Reports: Chicken Pox Other Infectious Disease History: septic - Past Surgical History GI Surgical History: Reports: Appendectomy, Other (See Below) - SUBSTANCE USE Smoking Status *Q: Never Smoker Tobacco Use Within Last Twelve Months: Cigarettes Second Hand Smoke Exposure: No Days Per Week of Alcohol Use: 0 Number of Drinks Per Day: 3 Total Drinks Per Week: 0 Recreational Drug Use History: No Recreational Drug Type: Reports: Ativan - HOME MEDS Home Medications: Home Meds ClonazePAM [KlonoPIN] 1 mg PO DAILY 01/14/16 [History] #103/Iron Fumarate/Fa [ ] 1 each PO DAILY 06/18/16 [ History] Azithromycin [Zithromax] 250 mg PO DAILY #4 tablet 10/10/16 [Rx] - CURRENT (IN HOUSE) MEDS Current Meds: Current Medications Ephedrine Sulfate (Ephedrine Sulfate) 5 mg IVPUSH ASDIRECTED PRN PRN Reason: Hypotension Fentanyl (Sublimaze) 100 mcg EPIDUR Q3H PRN PRN Reason: Pain Fentanyl/Bupivacaine HCl (Fentanyl/Bupivacaine/Ns 2 Mcg-0.125% 100 Ml) 100 ml EPIDUR ASDIRECTED KOFFI Lactated Ringer's (Ringers, Lactated) 1,000 mls @ 100 mls/hr IV ASDIRECTED KOFFI Last Admin: 10/16/16 00:46 Dose: 999 mls/hr Oxytocin/Lactated Ringer's (Pitocin In Lr 10 Units/1,000 Ml) 10 unit in 1,000 mls @ 500 mls/hr IV TITRATE KOFFI Ampicillin Sodium 1 gm/ Sodium (Chloride) 100 mls @ 200 mls/hr IV Q4H KOFFI Ondansetron HCl (Zofran) 4 mg IVPUSH ONETIME PRN PRN Reason: Nausea/Vomiting Sodium Chloride (Saline Flush) 10 ml FLUSH ASDIRECTED PRN PRN Reason: Keep Vein Open Discontinued Medications Acetaminophen/Codeine Phosphate (Tylenol With Codeine No.3 300mg/30mg) 1 tab PO ONETIME ONE Stop: 10/15/16 21:17 Last Admin: 10/15/16 21:28 Dose: 1 tab Ampicillin Sodium 2 gm/ Sodium (Chloride) 100 mls @ 200 mls/hr IV ONETIME ONE Stop: 10/16/16 00:15 Last Admin: 10/16/16 00:45 Dose: 200 mls/hr Sodium Chloride (Normal Saline) Confirm Administered Dose 200 mls @ as directed .ROUTE .STK-MED ONE Stop: 10/16/16 00:40 Last Admin: 10/16/16 00:45 Dose: Not Given
[2016-10-16] MEDS: Bupivacaine/fentaNYL/NS 100 ML Bag EPIDUR SCH ×3 (01:29→16:09)
[2016-10-16] MEDS: Ampicillin 1 GM in Sodium Chloride 0.9% 100 ML IV SCH ×5 (04:46→20:04)
[2016-10-16] MEDS: Oxytocin/Lactated Ringers 10 UNIT/1,000 ML BAG IV SCH ×2 (12:11→20:02)
[2016-10-16] MEDS ORDERED: Bupivacaine 0.25% 10 ML SDV ONE (18:17)
[2016-10-16] MEDS ORDERED: fentaNYL 100 MCG/2 ML SDV ONE (18:17)
[2016-10-16] MEDS ORDERED: Acetaminophen 325 MG Tab PO ONE (18:59)
[2016-10-16] MEDS ORDERED: Oxytocin 10 Units/1 ML SDV IV ONE (19:01)
--- NOTE | 2016-10-16 22:31 | PCM.SN ---
- Free Text/Narrative Note: Komal is a 31-year-old 5 now para 07/13/2001 white female was admitted last evening with complaints of contractions. She is 36-2/7 weeks on the day of her delivery. She changed her cervix from approximately 1 cm to 3 cm and effaced significantly. Baby is in a headdown position. Bag lance bulging. She continued to have contractions and progressed to approximately 4 cm at which time decision is made to proceed with more aggressive intervention of labor. Membranes are ruptured and patient eventually did receive some Pitocin per protocol to augment labor. She became completely dilated at approximately 2100 hours on 10/16/2016. She pushed for approximately one hour at which time she delivered a viable, single 10, female at 2159 hours on 10/16/2016. Baby had Apgars of 8 and 9 and was 21 inches in length. The baby weighed 3050 g (6 pounds-11.6 ounces). Baby delivered in a direct occiput posterior position. Placenta delivered at 2209 hours in a Garibay presentation. Pitocin was given after delivery of the baby to facilitate uterine tone and decrease bleeding. The placenta appeared intact and complete and had a three-vessel cord. Estimated blood loss was 100 cc. Perineum was intact and there were no vaginal or vulvar lacerations. Condition: Good
[2016-10-16] MEDS ORDERED: Benzocaine/Menthol 20%-0.5% Spray 56 GM Canister TOP PRN (22:57)
[2016-10-16] MEDS ORDERED: Ibuprofen 600 MG Tab PO PRN (22:57)
[2016-10-16] MEDS ORDERED: Lanolin 100% Cream 7 GM Tube TOP PRN (22:57)
[2016-10-16] MEDS ORDERED: Witch Hazel Medicated Pads 100/Jar TOP PRN (22:57)
[2016-10-17] MEDS: Metoprolol Succinate 50 MG Tab.ER PO SCH ×2 (00:16→08:55)
[2016-10-17] MEDS: Acetaminophen 325 MG Tab PO PRN ×4 (00:17→15:41)
[2016-10-17] MEDS: ClonazePAM 1 MG Tab PO SCH ×3 (08:56→21:28)
[2016-10-17] MEDS: Docusate Sodium 100 MG Cap PO SCH ×2 (08:56→21:28)
[2016-10-17] MEDS ORDERED: ClonazePAM 1 MG Tab PO SCH (09:00)
[2016-10-17] MEDS: Acetaminophen/Codeine 300-30 MG Tab PO PRN (21:28)
[2016-10-18] MEDS: Acetaminophen/Codeine 300-30 MG Tab PO PRN ×2 (04:21→08:58)
--- NOTE | 2016-10-18 06:13 | PCM.DCSUM1 ---
Discharge Summary - Hospital Course Free Text/Narrative:: Susan is a 31-year-old 5 now para 07/13/2001 white female was admitted on 10/16/2016 with complaints of contractions. She is 36-2/7 weeks on the day of her delivery. She changed her cervix from approximately 1 cm to 3 cm and effaced significantly. Baby is in a headdown position. Bag lance bulging. She continued to have contractions and progressed to approximately 4 cm at which time decision is made to proceed with more aggressive intervention of labor. Membranes are ruptured and patient eventually did receive some Pitocin per protocol to augment labor. She became completely dilated at approximately 2100 hours on 10/16/2016. She pushed for approximately one hour at which time she delivered a viable, single 10, female at 2159 hours on 10/16/2016. Baby had Apgars of 8 and 9 and was 21 inches in length. The baby weighed 3050 g (6 pounds-11.6 ounces). Baby delivered in a direct occiput posterior position. Placenta delivered at 2209 hours in a Garibay presentation. Pitocin was given after delivery of the baby to facilitate uterine tone and decrease bleeding. The placenta appeared intact and complete and had a three-vessel cord. Estimated blood loss was 100 cc. Perineum was intact and there were no vaginal or vulvar lacerations. the patient has done well. She is voiding and ambulating well, has minimal lochia and has had normal vital signs. She is giving the baby up for adoption [facility] from [place] is here to facilitate. Patient is desiring discharge today. CBC is normal for the PP period. - Discharge Data Discharge Date: 10/18/16 Discharge Disposition: Home, Self-Care 01 Condition: Good - Patient Instructions Diet: Regular Diet as Tolerated Activity: As Tolerated (No intercourse or tampon use till bleeding stops) Driving: Do Not Drive (x 2 days) Showering/Bathing: May Shower (or bathe) Notify Provider of: Fever, Increased Pain, Swelling and Redness, Nausea and/or Vomiting - Discharge Plan Home Medications: Home Meds ClonazePAM [KlonoPIN] 1 mg PO DAILY 01/14/16 [History] #103/Iron Fumarate/Fa [ ] 1 each PO DAILY 06/18/16 [ History] Acetaminophen [Tylenol] 650 mg PO Q4H PRN #30 tablet 10/18/16 [Rx] Patient Handouts: Smoking Hazards, Smoking Cessation, Tips for Success - Discharge Summary/Plan Comment DC Time >30 min.: No Discharge Summary/Plan Comment: Discharge Plan: 1. discharge home 2. Regular, high fiber diet 3. Precautions given regarding increased bleeding, pain, temperature or s/s of DVT/PE 4. Medications per home medication list printed, discussed with and given to the patient. 5. RTC-Dr. Tafoya-6 weeks Dx: 37 week IUP-delivered Condition: good - Patient Data Vitals - Most Recent: Last Vital Signs Temp 36.7 C 10/18/16 04:26 Pulse 58 L 10/18/16 04:26 Resp 16 10/18/16 04:26 BP 129/78 10/18/16 04:26 Pulse Ox 99 10/18/16 04:26 Weight - Most Recent: 68.084 kg I&O - Last 24 hours: Intake & Output 10/17/16 10/17/16 10/18/16 14:59 22:59 06:59 Intake Total 480 530 Balance 480 530 Lab Results - Last 24 hrs: Laboratory Results - last 24 hr 10/17/16 Range/Units 06:04 WBC 23.02 H (3.98-10.04) K/mm3 RBC 4.06 (3.98-5.22) M/mm3 Hgb 11.0 L (11.2-15.7) gm/L Hct 35.0 (34.1-44.9) % MCV 86.2 (79.4-94.8) fl MCH 27.1 (25.6-32.2) pg MCHC 31.4 L (32.2-35.5) g/dl RDW Std Deviation 43.1 (36.4-46.3) fL Plt Count 323 (182-369) K/mm3 MPV 13.1 H (9.4-12.3) fl FERN Results - Last 24 hrs: Microbiology 10/15/16 20:15 Urine Culture - Final Urine, Clean Catch NO GROWTH AFTER 2 DAYS Med Orders - Current: Current Medications Acetaminophen (Tylenol) 650 mg PO Q4H PRN PRN Reason: mild pain or fever Last Admin: 10/17/16 15:41 Dose: 650 mg Acetaminophen/Codeine Phosphate (Tylenol With Codeine No.3 300mg/30mg) 2 tab PO Q4H PRN PRN Reason: pain Last Admin: 10/18/16 04:21 Dose: 2 tab Benzocaine/Menthol (Dermoplast Pain Relief [place]) 0 gm TOP ASDIRECTED PRN PRN Reason: Perineal Comfort Measure Last Admin: 10/16/16 23:15 Dose: 1 canister Clonazepam (Klonopin) 1 mg PO TID [facility] Last Admin: 10/17/16 21:28 Dose: 1 mg Docusate Sodium (Colace) 100 mg PO BID [facility] Last Admin: 10/17/16 21:28 Dose: 100 mg Emollient Ointment (Lansinoh Hpa) 0 gm TOP ASDIRECTED PRN PRN Reason: Sore Nipples Metoprolol Succinate (Toprol Xl) 50 mg PO DAILY [facility] Last Admin: 10/17/16 08:55 Dose: 50 mg Witch Christiana (Tucks) 1 pad TOP ASDIRECTED PRN PRN Reason: Hemorrhoid pain Last Admin: 10/16/16 23:15 Dose: 1 container Discontinued Medications Acetaminophen (Tylenol) 650 mg PO NOW ONE Stop: 10/16/16 19:00 Last Admin: 10/16/16 19:58 Dose: 650 mg Acetaminophen/Codeine Phosphate (Tylenol With Codeine No.3 300mg/30mg) 1 tab PO ONETIME ONE Stop: 10/15/16 21:17 Last Admin: 10/15/16 21:28 Dose: 1 tab Bupivacaine HCl (Sensorcaine-Mpf 0.25%) Confirm Administered Dose 10 ml .ROUTE .STK-MED ONE Stop: 10/16/16 18:18 Clonazepam (Klonopin) 1 mg PO DAILY [facility] Ephedrine Sulfate (Ephedrine Sulfate) 5 mg IVPUSH ASDIRECTED PRN PRN Reason: Hypotension Fentanyl (Sublimaze) 100 mcg EPIDUR Q3H PRN PRN Reason: Pain Last Admin: 10/16/16 01:30 Dose: 100 mcg Fentanyl (Sublimaze) Confirm Administered Dose 100 mcg .ROUTE .STK-MED ONE Stop: 10/16/16 18:18 Fentanyl/Bupivacaine HCl (Fentanyl/Bupivacaine/Ns 2 Mcg-0.125% 100 Ml) 100 ml EPIDUR ASDIRECTED [facility] Last Admin: 10/16/16 16:09 Dose: 100 ml Lactated Ringer's (Ringers, Lactated) 1,000 mls @ 100 mls/hr IV ASDIRECTED KOFFI Last Admin: 10/16/16 20:12 Dose: 125 mls/hr Oxytocin/Lactated Ringer's (Pitocin In Lr 10 Units/1,000 Ml) 10 unit in 1,000 mls @ 500 mls/hr IV TITRATE KOFFI Ampicillin Sodium 2 gm/ Sodium (Chloride) 100 mls @ 200 mls/hr IV ONETIME ONE Stop: 10/16/16 00:15 Last Admin: 10/16/16 00:45 Dose: 200 mls/hr Ampicillin Sodium 1 gm/ Sodium (Chloride) 100 mls @ 200 mls/hr IV Q4H KOFFI Last Admin: 10/16/16 20:04 Dose: 200 mls/hr Sodium Chloride (Normal Saline) Confirm Administered Dose 200 mls @ as directed .ROUTE .K-MED ONE Stop: 10/16/16 00:40 Last Admin: 10/16/16 00:45 Dose: Not Given Oxytocin/Lactated Ringer's (Pitocin In Lr 10 Units/1,000 Ml) 10 unit in 1,000 mls @ 12 mls/hr IV TITRATE KOFFI; 2 MUNITS/MIN PRN Reason: Protocol Last Titration: 10/16/16 21:59 Dose: 500 mls/hr Ibuprofen (Motrin) 600 mg PO Q4H PRN PRN Reason: Mild pain or fever Ondansetron HCl (Zofran) 4 mg IVPUSH ONETIME PRN PRN Reason: Nausea/Vomiting Oxytocin (Pitocin) 10 unit IV ONETIME ONE Stop: 10/16/16 19:02 Last Admin: 10/16/16 20:02 Dose: 10 unit Sodium Chloride (Saline Flush) 10 ml FLUSH ASDIRECTED PRN PRN Reason: Keep Vein Open *Q Meaningful Use (DIS) - VTE *Q VTE Criteria *Q: - Stroke *Q Stroke Criteria *Q: - AMI *Q AMI Criteria *Q:
[2016-10-18] MEDS: Docusate Sodium 100 MG Cap PO SCH (08:52)
[2016-10-18] MEDS: Metoprolol Succinate 50 MG Tab.ER PO SCH (08:53)
[2016-10-18] MEDS: ClonazePAM 1 MG Tab PO SCH (08:54)
[2016-10-18 10:55] VITALS: BP 127/87
== END 2016-10-18 12:25 | disposition home or self-care (01) | DRG 775 ==
LOC: JD.OBCHECK 18:50 → JD.OB 18:50 → JD.OBCHECK 23:46 → JD.OB 23:46 → OBSVTOIN 10-16 21:59 → EEVIPCON 10-16 21:59 → JD.OB 10-16 21:59
PROVIDERS: ADMIT Obstetrics & Gynecology; ATTEND Obstetrics & Gynecology
PROC: 10E0XZZ Delivery of Products of Conception, External Approach (ICD-10-PCS; principal; 2016-10-16)
DX: O99.344 Other mental disorders complicating childbirth (principal); O99.354 Diseases of the nervous system complicating childbirth; G40.909 Epilepsy, unspecified, not intractable, without status epilepticus; F41.8 Other specified anxiety disorders; Z3A.36 36 weeks gestation of pregnancy; Z37.0 Single live birth; Z86.59 Personal history of other mental and behavioral disorders
CPT/HCPCS: 01967; 36415; 80306; 81001; 85027; 87086; A9270-GY; J0290; J2590; J3010; J7030; J7120

== ENCOUNTER 2017-02-03 16:51 | Emergency (ER) | payer MEDICAID ==
[2017-02-03 17:10] VITALS: BP 126/82
[2017-02-03] MEDS ORDERED: Lactated Ringers 1,000 ML IV ONE (17:39)
[2017-02-03] MEDS ORDERED: Sodium Chloride 0.9% 10 ML Syringe FLUSH PRN (17:39)
[2017-02-03] MEDS ORDERED: diphenhydrAMINE 50 MG/ML SDV IVPUSH ONE (17:39)
--- NOTE | 2017-02-03 17:53 | EDM.PDOC ---
ED HPI GENERAL MEDICAL PROBLEM - General Chief Complaint: Fever Stated Complaint: FEVER Time Seen by Provider: 02/03/17 17:28 Source of Information: Reports: Patient History Limitations: Reports: No Limitations - History of Present Illness INITIAL COMMENTS - FREE TEXT/NARRATIVE: 31-year-old female presents for evaluation and treatment of a fever. Patient reports that she first developed a fever today. Reports that she took her temperature at home and it was 102. This was taken with a temporal thermometer. She reports she has been taking Tylenol today for headache and fever relief. The last dose of Tylenol was at 1600 today. Patient reports that she has also suffering from a headache, epigastric pain, nausea and vomiting. She reports one episode of vomiting en route to the ER. No earaches, sore throat, diarrhea, dysuria or hematuria. Last menstrual period was about 4 days ago. patient's boyfriend is present at the bedside. He states today around 1600 she was getting out of the shower. He appreciated that she looked weak and that she was about to pass out. He states that he was able to catch her and lower her to the floor. He estimates she was unresponsive for about 3-4 minutes after this incident. He reports that she was not breathing. States that her lips were blue. He states that he started chest compressions and gave her rescue breaths. He reports during this episode she did have a pulse. She reports that she remembers the entire incident. No seizure-like activity was appreciated. Patient does have a past medical history of seizures which she used to take Klonopin before. She is no longer on Klonopin. No tongue biting, tonic-clonic activity, urinary incontinence or stool incontinence. She delivered a baby girl via spontaneous vaginal delivery in October 2016. She has since given this child up for adoption. patient denies any recent travel. She denies any ill contacts. 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 below) Other Treatments W[employer] PU[employer] OPERATOR SUPERVISOR: tylenol Headache Pain Score (Numeric/FACES): 10 - Related Data Allergies Allergy/AdvReac Type Severity Reaction Status Date / Time vancomycin Allergy Severe Burning Verified 10/16/16 01:35 ketorolac tromethamine Allergy Hives Verified 10/16/16 01:35 [From Toradol] sumatriptan [From Imitrex] Allergy Hives Verified 10/16/16 01:35 sumatriptan succinate Allergy Hives Verified 10/16/16 01:35 [From Imitrex] aripiprazole [From Abilify] AdvReac Tachycardia Verified 10/16/16 01:35 metoclopramide HCl AdvReac Anxiety Verified 10/16/16 01:35 [From Reglan] NSAIDS (Non-Steroidal AdvReac Tachycardia Verified 10/16/16 01:35 Anti-Inflamma pindolol AdvReac Tachycardia Verified 10/16/16 01:35 prednisone AdvReac Muscle Verified 10/16/16 01:35 Weakness abel mattson AdvReac Dizziness Uncoded 10/10/16 22:27 Home Meds: Home Meds Acetaminophen [Tylenol] 650 mg PO Q4H PRN #30 tablet 10/18/16 [Rx] Past Medical History HEENT History: Reports: Impaired Vision Cardiovascular History: Reports: Arrhythmia Other Cardiovascular History: SVT Respiratory History: Reports: Bronchitis, Recurrent, Pneumonia, Recurrent Gastrointestinal History: Reports: None Genitourinary History: Reports: Pyelonephritis, Renal Calculus 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 , Neurological History: Reports: Migraines Psychiatric History: Reports: Anxiety, Depression, Panic Attack, Suicide Attempt - Infectious Disease History Infectious Disease History: Reports: Chicken Pox Other Infectious Disease History: septic - Past Surgical History GI Surgical History: Reports: Appendectomy, Other (See Below) Social & Family History - Family History Family Medical History: Noncontributory - Tobacco Use Smoking Status *Q: Never Smoker Years of Tobacco use: 1 Packs/Tins Daily: 0.2 Used Tobacco, but Quit: Yes Month Tobacco Last Used: 05/2105 Second Hand Smoke Exposure: No - Caffeine Use Caffeine Use: Reports: Soda - Alcohol Use Days Per Week of Alcohol Use: 0 Number of Drinks Per Day: 3 Total Drinks Per Week: 0 - Recreational Drug Use Recreational Drug Use: No Recreational Drug Type: Reports: Ativan - Living Situation & Occupation Living situation: Reports: , with Family Occupation: Unemployed ED ROS GENERAL - Review of Systems Review Of Systems: See Below Constitutional: Reports: Fever, Other (reports photophobia) HEENT: Reports: Other (no tongue biting). Denies: Ear Pain, Sinus Problem, Throat Pain Respiratory: Denies: Cough GI/Abdominal: Reports: Abdominal Pain, Nausea, Vomiting. Denies: Diarrhea, Stool Incontinence : Denies: Dysuria, Incontinence Neurological: Reports: Headache, Syncope. Denies: Seizure ED EXAM, GENERAL - Physical Exam Exam: See Below Exam Limited By: No Limitations General Appearance: Alert, WD/WN, No Apparent Distress Eye Exam: Bilateral Eye: EOMI, PERRL Ears: Normal External Exam, Normal Canal, Hearing Grossly Normal, Normal TMs Nose: Normal Inspection Throat/Mouth: Normal Inspection, Normal Lips, Normal Voice, No Airway Compromise Head: Atraumatic, Normocephalic Neck: Normal Inspection, Supple, Non-Tender, Full Range of Motion Respiratory/Chest: No Respiratory Distress, Lungs Clear, Normal Breath Sounds Cardiovascular: Normal Peripheral Pulses, No Murmur, Tachycardia GI/Abdominal: Normal Bowel Sounds, Soft, Non-Tender Neurological: Alert, Oriented, Normal Cognition Psychiatric: Normal Affect, Normal Mood Skin Exam: Warm, Dry, Normal Color EKG INTERPRETATION EKG Date: 02/03/17 Time: 17:50 Rhythm: NSR Rate (Beats/Min): 110 [place]: Normal P-Wave: Present QRS: Normal ST-T: Normal QT: Normal EKG Interpretation Comments: sinus tachycardia at 110 bpm. No acute changes. Reviewed by myself and Dr. Lima. Course - Vital Signs Last Recorded V/S: Last Vital Signs Temp 36.4 C 02/03/17 17:09 Pulse 114 H 02/03/17 17:09 Resp 10 L 02/03/17 17:09 BP 126/82 02/03/17 17:09 Pulse Ox 97 02/03/17 17:09 Orthostatic Blood Pressure [ 97/71 Standing] Orthostatic Blood Pressure [ 113/74 Sitting] Orthostatic Blood Pressure [ 112/68 Supine] - Orders/Labs/Meds Labs: Laboratory Tests 02/03/17 02/03/17 02/03/17 Range/Units 18:00 18:00 18:00 WBC 16.59 H (3.98-10.04) K/mm3 RBC 4.45 (3.98-5.22) M/mm3 Hgb 13.3 (11.2-15.7) gm/L Hct 39.2 (34.1-44.9) % MCV 88.1 (79.4-94.8) fl MCH 29.9 (25.6-32.2) pg MCHC 33.9 (32.2-35.5) g/dl RDW Std Deviation 47.2 H (36.4-46.3) fL Plt Count 530 H (182-369) K/mm3 MPV 10.8 (9.4-12.3) fl Neutrophils % (Manual) 90 H (40-60) % Band Neutrophils % 0 (0-10) % Lymphocytes % (Manual) 7 L (20-40) % Atypical Lymphs % 0 % Monocytes % (Manual) 2 (2-10) % Eosinophils % (Manual) 0 L (0.7-5.8) % Basophils % (Manual) 1 (0.1-1.2) Platelet Estimate Increased Plt Morphology Comment See note RBC Morph Comment Normal Sodium 140 (136-145) mEq/L Potassium 4.1 (3.5-5.1) mEq/L Chloride 104 (98-107) mEq/L Carbon Dioxide 32 (21-32) mEq/L Anion Gap 8.1 (5-15) BUN 6 L (7-18) mg/dL Creatinine 0.7 (0.55-1.02) mg/dL Est Cr Clr Drug Dosing 110.01 mL/min Estimated GFR (MDRD) > 60 (>60) mL/min BUN/Creatinine Ratio 8.6 L (14-18) Glucose 133 H (74-106) mg/dL Calcium 8.2 L (8.5-10.1) mg/dL Total Bilirubin 0.8 (0.2-1.0) mg/dL AST 73 H (15-37) U/L ALT 87 H (14-59) U/L Alkaline Phosphatase 98 (46-116) U/L C-Reactive Protein 2.5 H* (<1.0) mg/dL Total Protein 6.5 (6.4-8.2) g/dl Albumin 3.2 L (3.4-5.0) g/dl Globulin 3.3 gm/dL Albumin/Globulin Ratio 1.0 (1-2) Lipase (73-393) U/L HCG, Qual Negative (NEGATIVE) Urine Color (Yellow) Urine Appearance (Clear) Urine pH (5.0-8.0) Ur Specific [place] (1.005-1.030) Urine Protein (Negative) Urine Glucose (UA) (Negative) Urine Ketones (Negative) Urine Occult Blood (Negative) Urine Nitrite (Negative) Urine Bilirubin (Negative) Urine Urobilinogen (0.2-1.0) Ur Leukocyte Esterase (Negative) Urine RBC (0-5) /hpf Urine WBC (0-5) /hpf Ur Epithelial Cells (0-5) /hpf Urine Bacteria (FEW) /hpf Urine Mucus (FEW) /hpf 02/03/17 02/03/17 Range/Units 18:00 18:20 WBC (3.98-10.04) K/mm3 RBC (3.98-5.22) M/mm3 Hgb (11.2-15.7) gm/L Hct (34.1-44.9) % MCV (79.4-94.8) fl MCH (25.6-32.2) pg MCHC (32.2-35.5) g/dl RDW Std Deviation (36.4-46.3) fL Plt Count (182-369) K/mm3 MPV (9.4-12.3) fl Neutrophils % (Manual) (40-60) % Band Neutrophils % (0-10) % Lymphocytes % (Manual) (20-40) % Atypical Lymphs % % Monocytes % (Manual) (2-10) % Eosinophils % (Manual) (0.7-5.8) % Basophils % (Manual) (0.1-1.2) Platelet Estimate Plt Morphology Comment RBC Morph Comment Sodium (136-145) mEq/L Potassium (3.5-5.1) mEq/L Chloride (98-107) mEq/L Carbon Dioxide (21-32) mEq/L Anion Gap (5-15) BUN (7-18) mg/dL Creatinine (0.55-1.02) mg/dL Est Cr Clr Drug Dosing mL/min Estimated GFR (MDRD) (>60) mL/min BUN/Creatinine Ratio (14-18) Glucose (74-106) mg/dL Calcium (8.5-10.1) mg/dL Total Bilirubin (0.2-1.0) mg/dL AST (15-37) U/L ALT (14-59) U/L Alkaline Phosphatase (46-116) U/L C-Reactive Protein (<1.0) mg/dL Total Protein (6.4-8.2) g/dl Albumin (3.4-5.0) g/dl Globulin gm/dL Albumin/Globulin Ratio (1-2) Lipase 112 (73-393) U/L HCG, Qual (NEGATIVE) Urine Color Light yellow (Yellow) Urine Appearance Clear (Clear) Urine pH 7.0 (5.0-8.0) Ur Specific [place] 1.010 (1.005-1.030) Urine Protein Negative (Negative) Urine Glucose (UA) Negative (Negative) Urine Ketones Negative (Negative) Urine Occult Blood Negative (Negative) Urine Nitrite Negative (Negative) Urine Bilirubin Negative (Negative) Urine Urobilinogen 0.2 (0.2-1.0) Ur Leukocyte Esterase Negative (Negative) Urine RBC 0-5 (0-5) /hpf Urine WBC 0-5 (0-5) /hpf Ur Epithelial Cells 0-5 (0-5) /hpf Urine Bacteria Occasional (FEW) /hpf Urine Mucus Not seen (FEW) /hpf Meds: Medications Discontinued Medications Generic Name Dose Route Start Last Admin Trade Name Freq PRN Reason Stop Dose Admin Diphenhydramine HCl 50 mg 02/03/17 17:39 02/03/17 18:03 Benadryl IVPUSH 02/03/17 17:40 50 mg ONETIME ONE Administration Lactated Ringer's 1,000 mls @ 999 mls/hr 02/03/17 17:39 02/03/17 18:03 Ringers, Lactated IV 02/03/17 18:39 999 mls/hr .BOLUS ONE Administration Sodium Chloride 10 ml 02/03/17 17:39 02/03/17 18:03 Saline Flush FLUSH 10 ml ASDIRECTED PRN Administration Keep Vein Open - Radiology Interpretation Free Text/Narrative:: chest 2 view shows no acute intrathoracic process. - Re-Assessments/Exams Free Text/Narrative Re-Assessment/Exam: 02/03/17 19:31 influenza is negative. Strep is negative. I reviewed the patient's previous ER visits and hospitalizations. She was hospitalized for a similar incident a bout a year ago for fever of unknown origin, with headaches and elevated white blood cell count of 23,000. etiology for fever was identified. Reviewing her records she appears that she is always slightly tachycardic often in the 100 to 120s. She also chronically has an elevated white blood cell count often in the teens. I feel that her vitals and her labs today are her baseline. I discussed the case with Dr. Hdz. He knows the patient and also agrees that this is likely her baseline. She is no fever in the ER. Possibly a viral upper respiratory infection causing her fever and symptoms. Unsure what to make with the unresponsive episode. She was exiting the shower when this occurred. Likely vasovagal. It does not sound that she needed chest compressions as she had a pulse but possibly she did require rescue breathing. I reviewed the lab and imaging results with patient at this point she is feeling tired from the Benadryl. She looks improved. She has slept. We will discharge her home. Discharge instructions as documented. Departure - Departure Time of Disposition: 19:31 Disposition: Home, Self-Care 01 Condition: Fair Clinical Impression: Fever - Discharge Information Instructions: Fever, Adult Referrals: Analilia Brown DO [Primary Care Provider] - Forms: ED Department Discharge Additional Instructions: go home and rest. Continue to take Tylenol as needed for fever and headache relief. Follow up with your primary care provider this week for recheck of your symptoms. Please return to the ER if your symptoms change or worsen.
--- NOTE | 2017-02-05 19:58 | CR ---
Chest: Two views of the chest were obtained. Comparison: Prior chest x-ray of 03/03/16. Heart size and mediastinum are normal. Lungs are clear. Several surgical clips are seen within the left upper abdomen. Bony structures show minimal scoliosis within the spine. Impression: 1. Incidental findings. Nothing acute is appreciated on two-view chest x-ray. Diagnostic code #2
== END 2017-02-03 19:40 | disposition home or self-care (01) ==
LOC: EEVIPCON 16:51 → JD.ED 16:51
DX: R50.9 Fever, unspecified (principal); Z88.1 Allergy status to other antibiotic agents; Z88.6 Allergy status to analgesic agent; Z88.8 Allergy status to other drugs, medicaments and biological substances; Z87.442 Personal history of urinary calculi; Z87.01 Personal history of pneumonia (recurrent)
CPT/HCPCS: 36415; 71020; 80053; 81001; 83690; 84703; 85025; 86140; 87081; 87430; 87804; 93005; 96361; 96374; 99284; J1200; J7050; J7120

== ENCOUNTER 2017-02-16 13:58 | Emergency (ER) | payer MEDICAID ==
[2017-02-16] MEDS ORDERED: Ondansetron 4 MG/2 ML SDV IVPUSH ONE (14:02)
[2017-02-16] MEDS ORDERED: Sodium Chloride 0.9% 10 ML Syringe FLUSH PRN (14:02)
[2017-02-16] MEDS ORDERED: Sodium Chloride 0.9% 1,000 ML IV SCH (14:15)
--- NOTE | 2017-02-16 15:31 | EDM.PDOC ---
ED HPI GENERAL MEDICAL PROBLEM - General Chief Complaint: Drug or Alcohol Abuse Stated Complaint: [facility] Time Seen by Provider: 02/16/17 13:59 Source of Information: Reports: Patient History Limitations: Reports: No Limitations - History of Present Illness INITIAL COMMENTS - FREE TEXT/NARRATIVE: The patient presents by ambulance. She overdosed on heroin. She injected the heroin. This is her 4th time taking heroin. She was with a friend when she did this and he called 911. When EMS arrived, she was apneic but she had a pulse. They gave her a total of 4mg of narcan and she woke up and started breathing. There is a batch of heroin that hit [facility] that may be laced with fentanyl. This is according to police. The patient has some ringing in her ears. She has a rapid heart rate and she is shaking. Onset: Sudden Duration: Minutes: Improves with: Reports: None Worsens with: Reports: None Associated Symptoms: Reports: Nausea/Vomiting. Denies: Chest Pain, Fever/Chills , Shortness of Breath - Related Data Allergies Allergy/AdvReac Type Severity Reaction Status Date / Time vancomycin Allergy Severe Burning Verified 10/16/16 01:35 ketorolac tromethamine Allergy Hives Verified 10/16/16 01:35 [From Toradol] sumatriptan [From Imitrex] Allergy Hives Verified 10/16/16 01:35 sumatriptan succinate Allergy Hives Verified 10/16/16 01:35 [From Imitrex] aripiprazole [From Abilify] AdvReac Tachycardia Verified 10/16/16 01:35 metoclopramide HCl AdvReac Anxiety Verified 10/16/16 01:35 [From Reglan] NSAIDS (Non-Steroidal AdvReac Tachycardia Verified 10/16/16 01:35 Anti-Inflamma pindolol AdvReac Tachycardia Verified 10/16/16 01:35 prednisone AdvReac Muscle Verified 10/16/16 01:35 Weakness camb[place] srinivasan AdvReac Dizziness Uncoded 10/10/16 22:27 Home Meds: Home Meds Acetaminophen [Tylenol] 650 mg PO Q4H PRN #30 tablet 10/18/16 [Rx] Past Medical History HEENT History: Reports: Impaired Vision Cardiovascular History: Reports: Arrhythmia Other Cardiovascular History: SVT Respiratory History: Reports: Bronchitis, Recurrent, Pneumonia, Recurrent Gastrointestinal History: Reports: None Genitourinary History: Reports: Pyelonephritis, Renal Calculus 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 , Neurological History: Reports: Migraines Psychiatric History: Reports: Anxiety, Depression, Panic Attack, Suicide Attempt - Infectious Disease History Infectious Disease History: Reports: Chicken Pox Other Infectious Disease History: septic - Past Surgical History GI Surgical History: Reports: Appendectomy, Other (See Below) Social & Family History - Family History Family Medical History: Noncontributory - Tobacco Use Smoking Status *Q: Current Some Day Smoker Years of Tobacco use: 4 Packs/Tins Daily: 1 Used Tobacco, but Quit: Yes Month Tobacco Last Used: 05/2105 Second Hand Smoke Exposure: No - Caffeine Use Caffeine Use: Reports: Coffee - Alcohol Use Days Per Week of Alcohol Use: 2 Number of Drinks Per Day: 2 Total Drinks Per Week: 4 - Recreational Drug Use Recreational Drug Use: Yes Drug Use in Last 12 Months: Yes Recreational Drug Type: Reports: Heroin, Marijuana/Hashish - Living Situation & Occupation Living situation: Reports: , with Family Occupation: Unemployed ED ROS GENERAL - Review of Systems Review Of Systems: See Below Constitutional: Reports: No Symptoms HEENT: Reports: No Symptoms Respiratory: Reports: No Symptoms Cardiovascular: Reports: No Symptoms Endocrine: Reports: No Symptoms GI/Abdominal: Reports: Nausea : Reports: No Symptoms Musculoskeletal: Reports: Other (Shaking) - Physical Exam Exam: See Below Exam Limited By: No Limitations General Appearance: Alert, No Apparent Distress Ears: Normal External Exam Nose: Normal Inspection Head Exam: Atraumatic, Normocephalic Neck: Normal Inspection Respiratory/Chest: No Respiratory Distress, Lungs Clear, Normal Breath Sounds Cardiovascular: No Edema, No Murmur, Tachycardia GI/Abdominal: Soft, Non-Tender, No Organomegaly, No Mass Neuro Exam (Abbreviated): Alert, Oriented, No Motor/Sensory Deficits, Other ( The patient is shaking) Course - Vital Signs Last Recorded V/S: Last Vital Signs Temp 97.6 F 02/16/17 14:00 Pulse 150 H 02/16/17 14:00 Resp 22 H 02/16/17 14:00 BP 114/57 L 02/16/17 14:00 Pulse Ox - Orders/Labs/Meds Orders: Active Orders 24 hr Category Date Time Status Oxygen Therapy [RC] PRN Care 02/16/17 14:03 Active Peripheral IV Care [RC] . DIRECTED Care 02/16/17 14:03 Active Pulse Oximetry [RC] CONTINUOUS Care 02/16/17 14:03 Active Sodium Chloride 0.9% [Normal Saline] 1,000 ml Med 02/16/17 14:15 Active IV ASDIRECTED Sodium Chloride 0.9% [Saline Flush] Med 02/16/17 14:02 Active 10 ml FLUSH ASDIRECTED PRN ED Antiemetic Medication Reflex [OM.PC] Stat Oth 02/16/17 14:02 Ordered Peripheral IV Insertion Adult [OM.PC] Stat Oth 02/16/17 14:02 Ordered Medication Orders Sodium Chloride (Normal Saline) 1,000 mls @ 125 mls/hr IV ASDIRECTED KOFFI Last Admin: 02/16/17 14:05 Dose: 125 mls/hr Sodium Chloride (Saline Flush) 10 ml FLUSH ASDIRECTED PRN PRN Reason: Keep Vein Open Last Admin: 02/16/17 14:16 Dose: 10 ml Labs: Laboratory Tests 02/16/17 02/16/17 02/16/17 Range/Units 14:35 14:35 14:35 WBC 32.99 H (3.98-10.04) K/mm3 RBC 4.48 (3.98-5.22) M/mm3 Hgb 13.9 (11.2-15.7) gm/L Hct 39.7 (34.1-44.9) % MCV 88.6 (79.4-94.8) fl MCH 31.0 (25.6-32.2) pg MCHC 35.0 (32.2-35.5) g/dl RDW Std Deviation 45.2 (36.4-46.3) fL Plt Count 459 H (182-369) K/mm3 MPV 11.0 (9.4-12.3) fl Neut % (Auto) 91.0 H (34.0-71.1) % Lymph % (Auto) 4.2 L (19.3-51.7) % [place] % (Auto) 3.9 L (4.7-12.5) % Eos % (Auto) 0.3 L (0.7-5.8) Baso % (Auto) 0.1 (0.1-1.2) % Neut # (Auto) 30.02 H (1.56-6.13) K/mm3 Lymph # (Auto) 1.37 (1.18-3.74) K/mm3 [place] # (Auto) 1.29 H (0.24-0.36) K/mm3 Eos # (Auto) 0.11 (0.04-0.36) K/mm3 Baso # (Auto) 0.04 (0.01-0.08) K/mm3 Manual Slide Review Abnormal smear Sodium 141 (136-145) mEq/L Potassium 3.9 (3.5-5.1) mEq/L Chloride 104 (98-107) mEq/L Carbon Dioxide 25 (21-32) mEq/L Anion Gap 15.9 H (5-15) BUN 8 (7-18) mg/dL Creatinine 0.8 (0.55-1.02) mg/dL Est Cr Clr Drug Dosing 96.26 mL/min Estimated GFR (MDRD) > 60 (>60) mL/min BUN/Creatinine Ratio 10.0 L (14-18) Glucose 142 H (74-106) mg/dL Calcium 8.3 L (8.5-10.1) mg/dL Total Bilirubin 0.6 (0.2-1.0) mg/dL AST 82 H (15-37) U/L ALT 81 H (14-59) U/L Alkaline Phosphatase 76 (46-116) U/L Total Protein 6.6 (6.4-8.2) g/dl Albumin 3.3 L (3.4-5.0) g/dl Globulin 3.3 gm/dL Albumin/Globulin Ratio 1.0 (1-2) HCG, Qual Negative (NEGATIVE) Ethyl Alcohol 0.00 (0.00) gm% Meds: Medications Generic Name Dose Route Start Last Admin Trade Name Freq PRN Reason Stop Dose Admin Sodium Chloride 1,000 mls @ 125 mls/hr 02/16/17 14:15 02/16/17 14:05 Normal Saline IV 125 mls/hr ASDIRECTED KOFFI Administration Sodium Chloride 10 ml 02/16/17 14:02 02/16/17 14:16 Saline Flush FLUSH 10 ml ASDIRECTED PRN Administration Keep Vein Open Discontinued Medications Generic Name Dose Route Start Last Admin Trade Name Freq PRN Reason Stop Dose Admin Ondansetron HCl 4 mg 02/16/17 14:02 02/16/17 14:54 Zofran IVPUSH 02/16/17 14:03 4 mg ONETIME ONE Administration - Re-Assessments/Exams Free Text/Narrative Re-Assessment/Exam: 02/16/17 15:32 I ordered an IV NS 1L bolus, labs and zofran 4mg IV. 02/16/17 16:44 Her WBC was elevated at 32.99. His anion gap was elevated at 15.9. Her glucose was 142. Her AST was elevated at 82 and ALT was 81. Her HCG was negative. She was here for over 2 hours. Her oxygen saturations were > 95% with a normal respiratory rate. Her heart rate was >50. She was able to walk around the department. Departure - Departure Time of Disposition: 16:50 Disposition: Home, Self-Care 01 Condition: Good Clinical Impression: Heroin abuse Heroin overdose Qualifiers: Encounter type: initial encounter Injury intent: accidental or unintentional Qualified Code(s): T40.1X1A - Poisoning by heroin, accidental (unintentional), initial encounter - Discharge Information Additional Instructions: Do not take any heroin. There is some in town that is laced with fentanyl. That will make you stop breathing. Please return if you are worse. - My Orders Last 24 Hours: My Active Orders 02/16/17 14:02 Sodium Chloride 0.9% [Saline Flush] 10 ml FLUSH ASDIRECTED PRN ED Antiemetic Medication Reflex [OM.PC] Stat Peripheral IV Insertion Adult [OM.PC] Stat 02/16/17 14:03 Oxygen Therapy [RC] PRN Peripheral IV Care [RC] . DIRECTED Pulse Oximetry [RC] CONTINUOUS 02/16/17 14:15 Sodium Chloride 0.9% [Normal Saline] 1,000 ml IV ASDIRECTED - Assessment/Plan Last 24 Hours: My Active Orders 02/16/17 14:02 Sodium Chloride 0.9% [Saline Flush] 10 ml FLUSH ASDIRECTED PRN ED Antiemetic Medication Reflex [OM.PC] Stat Peripheral IV Insertion Adult [OM.PC] Stat 02/16/17 14:03 Oxygen Therapy [RC] PRN Peripheral IV Care [RC] . DIRECTED Pulse Oximetry [RC] CONTINUOUS 02/16/17 14:15 Sodium Chloride 0.9% [Normal Saline] 1,000 ml IV ASDIRECTED
[2017-02-16 17:14] VITALS: BP 101/57
== END 2017-02-16 17:00 | disposition home or self-care (01) ==
LOC: JD.ED 13:58
DX: T40.1X1A Poisoning by heroin, accidental (unintentional), initial encounter (principal); F17.210 Nicotine dependence, cigarettes, uncomplicated; Z88.1 Allergy status to other antibiotic agents; Z88.6 Allergy status to analgesic agent; Z88.8 Allergy status to other drugs, medicaments and biological substances
CPT/HCPCS: 36415; 80053; 80306; 84703; 85025; 96361; 96374; 99285; G0480; J2405; J7040; J7050; 99284

== ENCOUNTER 2017-02-23 13:53 | Emergency (ER) | payer MEDICAID ==
[2017-02-23] MEDS ORDERED: Sodium Chloride 0.9% 10 ML Syringe FLUSH PRN (14:09)
[2017-02-23] MEDS ORDERED: Sodium Chloride 0.9% 1,000 ML IV SCH (14:15)
--- NOTE | 2017-02-23 14:19 | EDM.PDOCBH ---
ED HPI GENERAL MEDICAL PROBLEM - General Chief Complaint: Drug or Alcohol Abuse Stated Complaint: [facility] Time Seen by Provider: 02/23/17 13:57 Source of Information: Reports: Patient, EMS History Limitations: Reports: No Limitations - History of Present Illness INITIAL COMMENTS - FREE TEXT/NARRATIVE: The patient smoked some heroin today and she was worried she may have overdosed. She overdosed last week on heroin that was laced with a type of fentanyl called cycopropylfentanyl. EMS came to get her after her mother called and she did not want any narcan. She is still breathing and she is alert when I talked with her. She denies any pain. She is looking to get some help. Onset: Sudden Duration: Minutes: Improves with: Reports: None Worsens with: Reports: None Associated Symptoms: Reports: No Other Symptoms - Related Data Allergies Allergy/AdvReac Type Severity Reaction Status Date / Time vancomycin Allergy Severe Burning Verified 02/23/17 13:59 ketorolac tromethamine Allergy Hives Verified 02/23/17 13:59 [From Toradol] sumatriptan [From Imitrex] Allergy Hives Verified 02/23/17 13:59 sumatriptan succinate Allergy Hives Verified 02/23/17 13:59 [From Imitrex] aripiprazole [From Abilify] AdvReac Tachycardia Verified 02/23/17 13:59 metoclopramide HCl AdvReac Anxiety Verified 02/23/17 13:59 [From Reglan] NSAIDS (Non-Steroidal AdvReac Tachycardia Verified 02/23/17 13:59 Anti-Inflamma pindolol AdvReac Tachycardia Verified 02/23/17 13:59 prednisone AdvReac Muscle Verified 02/23/17 13:59 Weakness abel mattson AdvReac Dizziness Uncoded 10/10/16 22:27 Home Meds: Home Meds Acetaminophen [Tylenol] 650 mg PO Q4H PRN #30 tablet 10/18/16 [Rx] Past Medical History HEENT History: Reports: Impaired Vision Cardiovascular History: Reports: Arrhythmia Other Cardiovascular History: SVT Respiratory History: Reports: Bronchitis, Recurrent, Pneumonia, Recurrent Gastrointestinal History: Reports: None Genitourinary History: Reports: Pyelonephritis, Renal 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 , Neurological History: Reports: Migraines Psychiatric History: Reports: Anxiety, Depression, Panic Attack, Suicide Attempt - Infectious Disease History Infectious Disease History: Reports: Chicken Pox Other Infectious Disease History: septic - Past Surgical History GI Surgical History: Reports: Appendectomy, Other (See Below) Social & Family History - Family History Family Medical History: Noncontributory - Tobacco Use Smoking Status *Q: Current Some Day Smoker Years of Tobacco use: 4 Packs/Tins Daily: 1 Used Tobacco, but Quit: Yes Month Tobacco Last Used: 05/2105 Second Hand Smoke Exposure: No - Caffeine Use Caffeine Use: Reports: Coffee - Alcohol Use Days Per Week of Alcohol Use: 2 Number of Drinks Per Day: 2 Total Drinks Per Week: 4 - Recreational Drug Use Recreational Drug Use: Yes Drug Use in Last 12 Months: Yes Recreational Drug Type: Reports: Heroin, Marijuana/Hashish - Living Situation & Occupation Living situation: Reports: , with Family Occupation: Unemployed ED ROS GENERAL - Review of Systems Review Of Systems: See Below Constitutional: Reports: No Symptoms HEENT: Reports: No Symptoms Respiratory: Reports: No Symptoms Cardiovascular: Reports: No Symptoms Endocrine: Reports: No Symptoms GI/Abdominal: Reports: No Symptoms : Reports: No Symptoms Musculoskeletal: Reports: No Symptoms Skin: Reports: No Symptoms Neurological: Reports: No Symptoms ED EXAM, BEHAVIORAL HEALTH - Physical Exam Exam: See Below Exam Limited By: No Limitations General Appearance: Alert, No Apparent Distress Ears: Normal External Exam Nose: Normal Inspection Head: Atraumatic, Normocephalic Neck: Normal Inspection Respiratory/Chest: No Respiratory Distress, Lungs Clear, Normal Breath Sounds Cardiovascular: Normal Peripheral Pulses, No Edema, Tachycardia GI/Abdominal: Soft, Non-Tender, No Organomegaly, No Mass Back Exam: Normal Inspection Extremities: Normal Inspection COURSE, BEHAVIORAL HEALTH COMP - Course Vital Signs: Last Vital Signs Temp 97.4 F 02/23/17 13:55 Pulse 114 H 02/23/17 13:55 Resp 16 02/23/17 13:55 BP 100/65 02/23/17 13:55 Pulse Ox 94 L 02/23/17 13:55 Orders, Labs, Meds: Active Orders 24 hr Category Date Time Status Cardiac Monitoring [RC] . DIRECTED Care 02/23/17 14:09 Active Peripheral IV Care [RC] . DIRECTED Care 02/23/17 14:10 Active CXR [Chest 1V Frontal] [CR] Stat Exams 02/23/17 18:50 Taken DRUG SCREEN, URINE [URCHEM] Stat Lab 02/23/17 19:15 Ordered STREP SCRN A RAPID W CULT CONF [RM] Stat Lab 02/23/17 19:04 Uncollected UA W/MICROSCOPIC [URIN] Stat Lab 02/23/17 19:15 Ordered Sodium Chloride 0.9% [Normal Saline] 1,000 ml Med 02/23/17 14:15 Active IV ASDIRECTED Sodium Chloride 0.9% [Saline Flush] Med 02/23/17 14:09 Active 10 ml FLUSH ASDIRECTED PRN Peripheral IV Insertion Adult [OM.PC] Stat Oth 02/23/17 14:09 Ordered Medication Orders Sodium Chloride (Normal Saline) 1,000 mls @ 125 mls/hr IV ASDIRECTED KOFFI Last Admin: 02/23/17 14:27 Dose: 125 mls/hr Sodium Chloride (Saline Flush) 10 ml FLUSH ASDIRECTED PRN PRN Reason: Keep Vein Open Last Admin: 02/23/17 14:27 Dose: 10 ml Laboratory Tests 02/23/17 02/23/17 02/23/17 Range/Units 13:55 13:55 13:55 WBC 31.45 H (3.98-10.04) K/mm3 RBC 4.98 (3.98-5.22) M/mm3 Hgb 15.2 (11.2-15.7) gm/L Hct 44.9 (34.1-44.9) % MCV 90.2 (79.4-94.8) fl MCH 30.5 (25.6-32.2) pg MCHC 33.9 (32.2-35.5) g/dl RDW Std Deviation 44.3 (36.4-46.3) fL Plt Count 595 H (182-369) K/mm3 MPV 11.9 (9.4-12.3) fl Neut % (Auto) 91.3 H (34.0-71.1) % Lymph % (Auto) 3.5 L (19.3-51.7) % [place] % (Auto) 4.4 L (4.7-12.5) % Eos % (Auto) 0.2 L (0.7-5.8) Baso % (Auto) 0.1 (0.1-1.2) % Neut # (Auto) 28.73 H (1.56-6.13) K/mm3 Lymph # (Auto) 1.10 L (1.18-3.74) K/mm3 [place] # (Auto) 1.39 H (0.24-0.36) K/mm3 Eos # (Auto) 0.05 (0.04-0.36) K/mm3 Baso # (Auto) 0.03 (0.01-0.08) K/mm3 Manual Slide Review Abnormal smear Sodium 138 (136-145) mEq/L Potassium 4.0 (3.5-5.1) mEq/L Chloride 100 (98-107) mEq/L Carbon Dioxide 28 (21-32) mEq/L Anion Gap 14.0 (5-15) BUN 17 (7-18) mg/dL Creatinine 1.0 (0.55-1.02) mg/dL Est Cr Clr Drug Dosing 74.22 mL/min Estimated GFR (MDRD) > 60 (>60) mL/min BUN/Creatinine Ratio 17.0 (14-18) Glucose 221 H (74-106) mg/dL Calcium 8.7 (8.5-10.1) mg/dL Total Bilirubin 0.8 (0.2-1.0) mg/dL AST 153 H (15-37) U/L ALT 112 H (14-59) U/L Alkaline Phosphatase 106 (46-116) U/L Total Protein 7.6 (6.4-8.2) g/dl Albumin 3.6 (3.4-5.0) g/dl Globulin 4.0 gm/dL Albumin/Globulin Ratio 0.9 L (1-2) HCG, Qual Negative (NEGATIVE) Ethyl Alcohol 0.00 (0.00) gm% Medications Generic Name Dose Route Start Last Admin Trade Name Freq PRN Reason Stop Dose Admin Sodium Chloride 1,000 mls @ 125 mls/hr 02/23/17 14:15 02/23/17 14:27 Normal Saline IV 125 mls/hr ASDIRECTED KOFFI Administration Sodium Chloride 10 ml 02/23/17 14:09 02/23/17 14:27 Saline Flush FLUSH 10 ml ASDIRECTED PRN Administration Keep Vein Open Re-Assessment/Re-Exam: I ordered an IV NS, labs, and a UDS. Her WBC was elevated at 31.45. Her Hgb was elevated at 15.2. Her AST was elevated at 153. Her ALT was elevated at 112. Her HCG was negative and her ETOH was 0. I do not have her UDS back yet but last when she overdosed she was positive for opiates, amphetamines, methamphetamines, and benzos. I called Vinod Downing our licensed addiction counselor and she came to see the patient. She feels she needs to be committed. She has filled out the paperwork. She may withdrawal hard tonight so she asked it we could admit her tonight. I called Dr Winters and she will get back to me. [facility] had nothing available. We will send her to [place] tomorrow. I talked with Dr Go at the [facility] in [place]. He accepted the patient. He did request a UA and CXR because of the high WBC. Her CXR shows no infiltrates. Departure - Departure Time of Disposition: 19:40 Disposition: DC/Tfer to Psych Hosp/Unit 65 Condition: Serious Clinical Impression: Drug abuse, Drug overdose, Heroin abuse, Methamphetamine abuse Heroin overdose Qualifiers: Encounter type: initial encounter Injury intent: accidental or unintentional Qualified Code(s): T40.1X1A - Poisoning by heroin, accidental (unintentional), initial encounter - Discharge Information Referrals: PCP,None [Primary Care Provider] - - My Orders Last 24 Hours: My Active Orders 02/23/17 14:09 Cardiac Monitoring [RC] . DIRECTED Sodium Chloride 0.9% [Saline Flush] 10 ml FLUSH ASDIRECTED PRN Peripheral IV Insertion Adult [OM.PC] Stat 02/23/17 14:10 Peripheral IV Care [RC] . DIRECTED 02/23/17 14:15 Sodium Chloride 0.9% [Normal Saline] 1,000 ml IV ASDIRECTED 02/23/17 18:50 CXR [Chest 1V Frontal] [CR] Stat 02/23/17 19:04 STREP SCRN A RAPID W CULT CONF [RM] Stat 02/23/17 19:15 DRUG SCREEN, URINE [URCHEM] Stat UA W/MICROSCOPIC [URIN] Stat - Assessment/Plan Last 24 Hours: My Active Orders 02/23/17 14:09 Cardiac Monitoring [RC] . DIRECTED Sodium Chloride 0.9% [Saline Flush] 10 ml FLUSH ASDIRECTED PRN Peripheral IV Insertion Adult [OM.PC] Stat 02/23/17 14:10 Peripheral IV Care [RC] . DIRECTED 02/23/17 14:15 Sodium Chloride 0.9% [Normal Saline] 1,000 ml IV ASDIRECTED 02/23/17 18:50 CXR [Chest 1V Frontal] [CR] Stat 02/23/17 19:04 STREP SCRN A RAPID W CULT CONF [RM] Stat 02/23/17 19:15 DRUG SCREEN, URINE [URCHEM] Stat UA W/MICROSCOPIC [URIN] Stat
--- NOTE | 2017-02-23 21:08 | CONS ---
CONSULTING PHYSICIAN: Vinod Downing LAC DATE OF CONSULTATION: 02/23/2017 TIME: 8:17 p.m. The patient is a 31-year-old female, who was brought to [facility] ER by [facility] after an opiate overdose. An alcohol and drug evaluation were requested by her medical treatment team at approximately 3:15 p.m. on 02/23/2017. SOURCE OF INFORMATION: Hospital records, patient's self report, prescription drug monitoring report, and background research. HISTORY OF PRESENT ILLNESS: The patient is a 31-year-old female, who has a long history of benzodiazepine and opiate dependence. According to past hospital records and evaluations by this counselor, her prescription drug monitoring report from 2009 indicates that she was taking approximately sixty 0.05 mg of alprazolam every 2 weeks along with various prescriptions for tramadol, hydrocodone, and promethazine codeine. In 2011, it appears there was significant doctor shopping with opiates as well as lorazepam. According to hospital records, in 2011 from May to August, there were 25 visits requesting pain medications. In 2012, the patient visited the [facility] Emergency Room 72 times. Most admissions were either pain or anxiety related. In 2013, the patient visited ED 32 times primarily with an injury with seeking pain medications or withdrawal. She did have a suicide attempt in March 2014 and was committed through the emergency room. In 2014, she visited ER 28 times with injuries or needing pain medication. She was during this time, and there was an admission with a possible miscarriage concern. In 2015, she visited ER 16 times, again with withdrawal symptoms for pain in various parts of her body. Also, in 2015, she became and visited Dr. Tafoya, [facility]. And was testing positive for benzodiazepines, amphetamines, and opiates. A Social Service report was filed. She had her baby on October 18, 2016. However, she states the baby was adopted out. There is no more information available. Since October 2016, she was admitted to [facility] ED on February 03, 2017, with a fever. Then, again on February 16, 2017, she overdosed slamming heroin laced with fentanyl and cyclopropyl fentanyl. Today, February 23, one week later she overdosed again smoking heroin. According to her prescription drug monitoring report, she has been consistently prescribed by multiple providers lorazepam and clonazepam with hydrocodone and acetaminophen 5/325 prescribed in February 2016 and acetaminophen codeine in July 2015. It would seem that if she is not being prescribed opiates and she is now slamming heroin, that her opiate use is criminally illicit. There is some indication that there may be amphetamine use as well and as she was testing positive during her , there is a lack of self or collateral report to substantiate, however. DIAGNOSES: The patient meets DSM-5 criteria for the following diagnosis: 1. F13.20, sedative, hypnotic, or anxiolytic use disorder, severe. 2. F11.20, opioid use disorder, severe. 3. F11.222, opiate intoxication, severe. 4. F15.20, amphetamine use disorder, severe, rule out. ASAM DIMENSIONS: 1. Dimension 1: Score 3. The patient tolerates and camilo with withdrawal discomfort poorly. She has severe intoxication such that she endangers herself and displays severe signs and symptoms or risks of severe but manageable withdrawal. 2. Dimension 2: Score 2. The patient tolerates and camilo poorly with physical problems, has poor general health as supported by her hundreds of visits to ER over the years. 3. Dimension 3: Score 3. The patient has severe lack of impulse control and coping skills. She appears to have thoughts of suicide as she is repeating the overdosing. She is severely impaired in significant life areas and appears to have severe symptoms of emotional issues that may interfere with participation and treatment. 4. Dimension 4: Score 4. The patient has no awareness of the severity of her addiction or mental disorder and does not want or is unwilling to explore change or is in total denial of the illness and its implications. 5. Dimension 5: Score 4. The patient has no awareness of the negative impact of mental health problems or substance abuse, has no coping skills to arrest her mental health or addiction illnesses or prevent relapse. 6. Dimension 6: Score 3+. The patient is not engaged in structured meaningful activity. Her peers are substance abusers as well, and there is significant Social Service involvement. ASSESSMENT SUMMARY: The patient appears to be a nice young woman, who has had a very long history of polysubstance dependence, primarily benzodiazepines, opiates, and a possible amphetamine rule out. Her dependence appears to be progressing at an alarming level. She has overdosed twice in the past week and when asked why after the first overdose she used again, she replies that she just smoked at this time. She was not slamming. The patient was offered information regarding area of treatment programs and asked if she would like to participate in a substance abuse treatment program. The patient replied that she would take the information and that is all she needed. She verbalized that she was unsure that she was ready to go to treatment. The patient is meeting ASAM criteria for level 3.7, medically managed inpatient treatment for stabilization. [facility] in [place] was contacted, and they do have a bed available next week. ANDREA Gonzalez, was consulted and she will notify the [facility] of the possibility to transfer the patient to [facility] when the patient meets transfer criteria. The patient is meeting ASAM imminent danger criteria, and a petition for involuntary commitment was exercised on 02/23/2017 to ensure safe discharge to the [facility]. It will be recommended to the [facility] that the patient be transferred to [facility] in [place] for continued care with a Suboxone program. MMODAL /[id number]
--- NOTE | 2017-02-24 06:59 | CR ---
Chest: Portable view of the chest was obtained. Comparison: Prior chest x-ray of 02/03/17. Heart size and mediastinum are within normal limits. Lungs are clear. Bony structures are grossly intact. Impression: 1. Nothing acute is identified on portable chest x-ray. Diagnostic code #1
[2017-02-24 08:50] VITALS: BP 118/76
== END 2017-02-24 11:11 ==
LOC: JD.ED 13:53
DX: T40.1X1A Poisoning by heroin, accidental (unintentional), initial encounter (principal); F15.10 Other stimulant abuse, uncomplicated; F17.210 Nicotine dependence, cigarettes, uncomplicated; F11.10 Opioid abuse, uncomplicated; Z88.1 Allergy status to other antibiotic agents; Z88.8 Allergy status to other drugs, medicaments and biological substances
CPT/HCPCS: 36415; 71010; 80053; 80306; 81001; 84703; 85025; 86140; 87081; 87430; 96360; 96361; 99285; G0480; J7040; J7050

== ENCOUNTER 2017-03-20 20:57 | Emergency (ER) | payer MEDICAID ==
[2017-03-20 21:19] VITALS: BP 125/96
[2017-03-20] MEDS ORDERED: diphenhydrAMINE 50 MG Cap PO ONE (21:31)
[2017-03-20] MEDS ORDERED: Hydrocortisone 1% Crm 30 GM Tube TOP ONE (21:32)
--- NOTE | 2017-03-20 21:44 | EDM.PDOC ---
ED HPI GENERAL MEDICAL PROBLEM - General Chief Complaint: Skin Complaint Stated Complaint: BURNING RED BUMPS ON BODY Time Seen by Provider: 03/20/17 21:18 Source of Information: Reports: Patient History Limitations: Reports: No Limitations - History of Present Illness INITIAL COMMENTS - FREE TEXT/NARRATIVE: Patient is a 31 year old female who presents to the E.D. complaining of small pruritic rash to the right buttocks, chest, and left forearm. Patient states she tool unisom approximately 1 hr when rash started. Rash/lesions are very pruritic. No oozing present. States she was at the [place] earlier in the day visiting a friend. States friend has no rash as such. Patient denies any history of similar symptoms. Has not taken any medications for the rash/ lesions. Denies fever, sore throat, recent viral symptoms or any additional complaints. Patient is a recovering heroin addict. She's been clean for the past 27 days. Denies any recreational drug use. Has been staying at a apartment of her friends since being discharged from [facility]. Patient denies any new lotions, detergents, perfumes, or fabric softeners. - Related Data Allergies Allergy/AdvReac Type Severity Reaction Status Date / Time vancomycin Allergy Severe Burning Verified 03/20/17 21:19 ketorolac tromethamine Allergy Hives Verified 03/20/17 21:19 [From Toradol] sumatriptan [From Imitrex] Allergy Hives Verified 03/20/17 21:19 sumatriptan succinate Allergy Hives Verified 03/20/17 21:19 [From Imitrex] aripiprazole [From Abilify] AdvReac Tachycardia Verified 03/20/17 21:19 metoclopramide HCl AdvReac Anxiety Verified 03/20/17 21:19 [From Reglan] NSAIDS (Non-Steroidal AdvReac Tachycardia Verified 03/20/17 21:19 Anti-Inflamma pindolol AdvReac Tachycardia Verified 03/20/17 21:19 prednisone AdvReac Muscle Verified 03/20/17 21:19 Weakness [place] srinivasan AdvReac Dizziness Uncoded 03/20/17 21:19 Home Meds: Home Meds Acetaminophen [Tylenol] 650 mg PO Q4H PRN #30 tablet 10/18/16 [Rx] Doxylamine Succinate [Unisom Sleep Aid] 1 tab PO BEDTIME 03/20/17 [History] Escitalopram Oxalate [Lexapro] 20 mg PO DAILY 03/20/17 [History] Naltrexone Microspheres [Vivitrol] 380 mg IM ASDIRECTED 03/20/17 [History] Past Medical History HEENT History: Reports: Impaired Vision Cardiovascular History: Reports: Arrhythmia Other Cardiovascular History: SVT Respiratory History: Reports: Bronchitis, Recurrent, Pneumonia, Recurrent Gastrointestinal History: Reports: None Genitourinary History: Reports: Pyelonephritis, 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 , Neurological History: Reports: Migraines Psychiatric History: Reports: Addiction, Anxiety, Depression, Panic Attack, Suicide Attempt - Infectious Disease History Infectious Disease History: Reports: Chicken Pox Other Infectious Disease History: septic - Past Surgical History GI Surgical History: Reports: Appendectomy, Other (See Below) Social & Family History - Family History Family Medical History: Noncontributory - Tobacco Use Smoking Status *Q: Current Every Day Smoker Years of Tobacco use: 2 Packs/Tins Daily: 0.5 Used Tobacco, but Quit: Yes Month Tobacco Last Used: 05/2105 Second Hand Smoke Exposure: No - Caffeine Use Caffeine Use: Reports: Coffee - Alcohol Use Days Per Week of Alcohol Use: 2 Number of Drinks Per Day: 2 Total Drinks Per Week: 4 - Recreational Drug Use Recreational Drug Use: Yes Drug Use in Last 12 Months: Yes Recreational Drug Type: Reports: Heroin Other Recreational Drug Type: OD on 02/23/17 and hasn't used since Recreational Drug Last Use: today - Living Situation & Occupation Living situation: Reports: , with Family Occupation: Unemployed ED ROS GENERAL - Review of Systems Review Of Systems: ROS reveals no pertinent complaints other than HPI. ED EXAM, SKIN/RASH Exam: See Below Exam Limited By: No Limitations General Appearance: Alert, WD/WN, No Apparent Distress Ears: Hearing Grossly Normal Nose: Normal Inspection Throat/Mouth: Normal Voice, No Airway Compromise Neck: Normal Inspection, Supple Respiratory/Chest: No Respiratory Distress, No Accessory Muscle Use Cardiovascular: Normal Peripheral Pulses, Regular Rate, Rhythm Peripheral Pulses: 2+: Radial (R) Neurological: Alert, Oriented, CN II-XII Intact, Normal Cognition, No Motor/ Sensory Deficits Psychiatric: Normal Affect, Normal Mood Skin: Warm, Dry Location, Skin: Chest (4 small pinpoint less than 0.25 cm erythematous raised lesions.), Abdomen (1 small pinpoint less than 0.25 cm erythematous raised lesion to the bellybutton), Other (Right Buttocks: Four pinpoint less than 0.25 cm erythematous raised lesions. Left wrist: 1 small pinpoint less than 0.25 cm erythematous raised lesions.) Associated features: No: Warmth, Tenderness, Swelling, Scaling, Inflammation, Crusting, Weeping Course - Vital Signs Last Recorded V/S: Last Vital Signs Temp 98.3 F 03/20/17 21:16 Pulse 99 03/20/17 21:16 Resp 16 03/20/17 21:16 BP 125/96 H 03/20/17 21:16 Pulse Ox 99 03/20/17 21:16 - Orders/Labs/Meds Meds: Medications Discontinued Medications Generic Name Dose Route Start Last Admin Trade Name Sravanq PRN Reason Stop Dose Admin Diphenhydramine HCl 50 mg 03/20/17 21:31 03/20/17 21:44 Benadryl PO 03/20/17 21:32 50 mg ONETIME ONE Administration Hydrocortisone 1 gm 03/20/17 21:32 03/20/17 21:45 Hydrocortisone 1% Crm TOP 03/20/17 21:33 1 gm ONETIME ONE Administration - Re-Assessments/Exams Free Text/Narrative Re-Assessment/Exam: Order Benadryl 50 mg by mouth and also hydrocortisone cream 1% to apply the affected areas. Per patient symptoms improving. Will Discharge patient home with instructions as documented. Departure - Departure Time of Disposition: 22:01 Disposition: Home, Self-Care 01 Condition: Good Clinical Impression: Pruritic rash - Discharge Information Instructions: Pruritus, Rash Referrals: Analilia Brown DO [Primary Care Provider] - Forms: ED Department Discharge Additional Instructions: As discussed take Benadryl 50 mg every 6 hours as needed for itching. Can take Pepcid 20 mg every day until rash dissipates. Apply 1% hydrocortisone cream and topical Benadryl 3 times a day for duration of rash. Follow-up with PCP in the next 3-5 days if symptoms not resolved. Return to the ED for any new or worsening symptoms.
== END 2017-03-20 22:18 | disposition home or self-care (01) ==
LOC: JD.ED 20:57
DX: L29.9 Pruritus, unspecified (principal); F17.210 Nicotine dependence, cigarettes, uncomplicated; Z88.8 Allergy status to other drugs, medicaments and biological substances
CPT/HCPCS: 99283; A9270; 99282

== ENCOUNTER 2017-04-27 14:43 | Emergency (ER) | payer MEDICAID ==
[2017-04-27 15:29] VITALS: BP 127/77
--- NOTE | 2017-04-27 16:53 | EDM.PDOC ---
ED HPI GENERAL MEDICAL PROBLEM - General Chief Complaint: Neurological Problem Stated Complaint: HEADACHE/LOSS OF VISION Time Seen by Provider: 04/27/17 15:43 Source of Information: Reports: Patient History Limitations: Reports: No Limitations - History of Present Illness INITIAL COMMENTS - FREE TEXT/NARRATIVE: The patient is a 31-year-old female with a history of migraine headaches who was sent here from clinic for an evaluation of headache with vision changes. She has a long-standing history of migraine headaches. She had been getting Botox injections for her headaches. However she lost her medical insurance and recently has not had any treatment for them. She's had about a week of stuffy nose, sore throat, and cough. States she thinks she might of had a fever initially but no fever for the past few days. She's had a headache which is frontal, sharp, constant, feels different than her usual migraines. She's also had intermittent episodes where she gets a more severe, searing sharp pain in her left head area and has associated transient loss of vision from her left eye. The loss of vision lasts seconds and then resolves. Her vision then returns to normal. No diplopia. No additional vision changes. No recent head injury. No additional complaint. She's been taking Tylenol for her headache with no relief. Headache Pain Score (Numeric/FACES): 10 - Related Data Allergies Allergy/AdvReac Type Severity Reaction Status Date / Time vancomycin Allergy Severe Burning Verified 04/27/17 15:24 ketorolac tromethamine Allergy Hives Verified 04/27/17 15:24 [From Toradol] sumatriptan [From Imitrex] Allergy Hives Verified 04/27/17 15:24 sumatriptan succinate Allergy Hives Verified 04/27/17 15:24 [From Imitrex] aripiprazole [From Abilify] AdvReac Tachycardia Verified 04/27/17 15:24 metoclopramide HCl AdvReac Anxiety Verified 04/27/17 15:24 [From Reglan] NSAIDS (Non-Steroidal AdvReac Tachycardia Verified 04/27/17 15:24 Anti-Inflamma pindolol AdvReac Tachycardia Verified 04/27/17 15:24 prednisone AdvReac Muscle Verified 04/27/17 15:24 Weakness [place] srinivasan AdvReac Dizziness Uncoded 12/14/17 15:24 Home Meds: Home Meds Mirtazapine 15 mg PO BEDTIME 04/27/17 [History] Past Medical History HEENT History: Reports: Impaired Vision Cardiovascular History: Reports: Arrhythmia Other Cardiovascular History: SVT Respiratory History: Reports: Bronchitis, Recurrent, Pneumonia, Recurrent Gastrointestinal History: Reports: None Genitourinary History: Reports: Pyelonephritis, 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 , Neurological History: Reports: Migraines Psychiatric History: Reports: Addiction, Anxiety, Depression, Panic Attack, Suicide Attempt - Infectious Disease History Infectious Disease History: Reports: Chicken Pox Other Infectious Disease History: septic - Past Surgical History GI Surgical History: Reports: Appendectomy, Other (See Below) Social & Family History - Family History Family Medical History: Noncontributory - Tobacco Use Smoking Status *Q: Current Every Day Smoker Years of Tobacco use: 3 Packs/Tins Daily: 1 Used Tobacco, but Quit: Yes Month Tobacco Last Used: 05/2105 Second Hand Smoke Exposure: No - Caffeine Use Caffeine Use: Reports: Coffee - Alcohol Use Days Per Week of Alcohol Use: 2 Number of Drinks Per Day: 2 Total Drinks Per Week: 4 - Recreational Drug Use Recreational Drug Use: No Drug Use in Last 12 Months: Yes Recreational Drug Type: Reports: Heroin Other Recreational Drug Type: OD on 02/23/17 and hasn't used since Recreational Drug Last Use: today - Living Situation & Occupation Living situation: Reports: , with Family Occupation: Unemployed ED ROS GENERAL - Review of Systems Review Of Systems: See Below Constitutional: Denies: Fever HEENT: Reports: Vision Change Respiratory: Denies: Shortness of Breath, Cough Cardiovascular: Denies: Chest Pain Endocrine: Reports: No Symptoms GI/Abdominal: Reports: Nausea. Denies: Abdominal Pain Musculoskeletal: Reports: No Symptoms Skin: Reports: No Symptoms Neurological: Reports: Headache. Denies: Numbness, Difficulty Walking, Weakness , Change in Speech, Gait Disturbance Psychiatric: Reports: No Symptoms Hematologic/Lymphatic: Reports: No Symptoms ED EXAM, NEURO - Physical Exam Exam: See Below Exam Limited By: No Limitations General Appearance: Alert, WD/WN, No Apparent Distress Eye Exam: Bilateral Eye: Normal Inspection, PERRL, Vision Changes (none), Other (visual hdz intact bilat) Ears: Normal External Exam Course - Vital Signs Last Recorded V/S: Last Vital Signs Temp 36.8 C 04/27/17 15:25 Pulse 114 H 04/27/17 15:25 Resp 16 04/27/17 15:25 BP 127/77 04/27/17 15:25 Pulse Ox 98 04/27/17 15:25 - Re-Assessments/Exams Free Text/Narrative Re-Assessment/Exam: 04/28/17 11:24 Given the transient nature of her visual symptoms, I think sinister explanation for her headache is much less likely. Would expect progressive or persistent vision loss with most potentially dangerous explanations for such symptoms. However I do think she needs to follow-up with her neurologist and possibly primary doctor for consideration of MRI. I don't think she would benefit for CT scan as I'm not concerned about hemorrhage or other abnormality that would be seen on CT. Offered this and discussed with patient who agrees that she would prefer to forego CT. Also discussed possibility of meningitis given her recent viral symptoms and offered lumbar puncture, however patient states that she does not want an LP. I think this is reasonable, she is quite well-appearing. Normal vital signs here, no meningismus, and benign exam. Discussed all the above with the patient at length and encouraged her to return for any worsening or changing symptoms and otherwise follow-up with her neurologist and primary doctor for further care. Departure - Departure Time of Disposition: 16:51 Disposition: Home, Self-Care 01 Clinical Impression: Headache Qualifiers: Headache type: unspecified Headache chronicity pattern: acute headache Intractability: not intractable Qualified Code(s): R51 - Headache - Discharge Information Instructions: General Headache Without Cause Referrals: Analilia Brown DO [Primary Care Provider] - Forms: ED Department Discharge Additional Instructions: 1. Take acetaminophen (Tylenol) as needed for pain 2. Drink plenty of fluids 3. Follow up with Dr. Brown next week to discuss referral for MRI if transient vision changes continue with your headaches 4. Return to the ED if you have: - fever (temp 101 or higher) - worsening headache - vision changes that don't quickly resolve - difficulty breathing - any other concerning symptoms
== END 2017-04-27 17:00 | disposition home or self-care (01) ==
LOC: JD.ED 14:43
DX: R51 Headache (principal); F41.0 Panic disorder [episodic paroxysmal anxiety]; F32.9 Major depressive disorder, single episode, unspecified; F17.210 Nicotine dependence, cigarettes, uncomplicated; Z88.1 Allergy status to other antibiotic agents; Z88.6 Allergy status to analgesic agent; Z88.8 Allergy status to other drugs, medicaments and biological substances
CPT/HCPCS: 99283; 99284

== ENCOUNTER 2017-05-03 00:02 | Emergency (ER) | payer MEDICAID ==
[2017-05-03] MEDS ORDERED: diphenhydrAMINE 50 MG/ML SDV IVPUSH ONE (00:13)
[2017-05-03] MEDS ORDERED: LORazepam 2 MG/ML MDV IVPUSH ONE (00:13)
[2017-05-03] MEDS ORDERED: Ondansetron 4 MG/2 ML SDV IVPUSH ONE (00:14)
[2017-05-03] MEDS ORDERED: Dextrose 5%-0.9% NaCl 1,000 ML IV SCH (00:15)
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
[2017-05-03] MEDS ORDERED: Promethazine 25 MG in Sodium Chloride 0.9% 50 ML IV ONE (01:40)
== END 2017-05-03 07:55 | disposition home or self-care (01) ==
LOC: JD.ED 00:02
DX: F10.120 Alcohol abuse with intoxication, uncomplicated (principal); F19.20 Other psychoactive substance dependence, uncomplicated; F17.210 Nicotine dependence, cigarettes, uncomplicated; F41.0 Panic disorder [episodic paroxysmal anxiety]; F32.9 Major depressive disorder, single episode, unspecified; Z88.1 Allergy status to other antibiotic agents; Z88.6 Allergy status to analgesic agent; Z88.8 Allergy status to other drugs, medicaments and biological substances; Z87.01 Personal history of pneumonia (recurrent); Y90.8 Blood alcohol level of 240 mg/100 ml or more
CPT/HCPCS: 36415; 80053; 80306; 83690; 83735; 84703; 85025; 96361; 96365; 96375; 99285; G0480; J1200; J2060; J2405; J2550; J7042; J7050; P9612; 99284

== ENCOUNTER 2021-04-25 12:20 | Emergency (ER) | payer MEDICAID, OTHER, SELFPAY ==
[2021-04-25 12:51] VITALS: BP 120/76; PULSE 110
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
--- NOTE | 2021-04-25 13:46 | CR ---
Chest and left ribs: Frontal view of the chest was obtained as well as 2 views of the left ribs. Comparison: Prior chest x-ray of 02/23/17. Heart size and mediastinum are within normal limits. Lungs are clear with no acute parenchymal change. No pneumothorax is seen. Surgical clips are seen within the left upper abdomen. No discrete left-sided rib abnormality is appreciated. Impression: 1. Nothing acute is seen on frontal chest x-ray. 2. No discrete left-sided rib abnormality is seen. Diagnostic code #1
== END 2021-04-25 14:00 | disposition home or self-care (01) ==
LOC: JD.ED 12:20
DX: R07.81 Pleurodynia (principal); Z88.6 Allergy status to analgesic agent; Z88.8 Allergy status to other drugs, medicaments and biological substances; Z91.018 Allergy to other foods
CPT/HCPCS: 71101-26-LT; 71101-LT; 99283-25; 99285

== ENCOUNTER 2021-07-21 20:20 | Emergency (ER) | payer MEDICAID ==
[2021-07-21 20:46] VITALS: BP 119/82; PULSE 116
[2021-07-21] MEDS ORDERED: Sodium Chloride 0.9% 10 ML Syringe FLUSH PRN (20:59)
[2021-07-21] MEDS ORDERED: Diphtheria,Pertussis(Acell),Tetanus Vaccine 0.5 ML Syringe IM ONE (22:03)
[2021-07-21] MEDS ORDERED: levETIRAcetam 1,000 MG in Sodium Chloride 0.9% 100 ML IV ONE (22:25)
[2021-07-21 22:37] LABS: STREP A BY PCR NOT DETECTED (NOT DETECT)
[2021-07-21 22:41] LABS: CORONAVIRUS COVID-19 NAA NEGATIVE (NEGATIVE)
== END 2021-07-21 23:01 | disposition home or self-care (01) ==
LOC: JD.ED 20:20
DX: G40.909 Epilepsy, unspecified, not intractable, without status epilepticus (principal); Z88.1 Allergy status to other antibiotic agents; Z88.6 Allergy status to analgesic agent; Z91.048 Other nonmedicinal substance allergy status; Z88.8 Allergy status to other drugs, medicaments and biological substances; Z72.0 Tobacco use; Z20.822 Contact with and (suspected) exposure to COVID-19; Z23 Encounter for immunization
CPT/HCPCS: 0240U; 36415; 80053; 80164; 81003; 83735; 85025; 87651; 90471; 90715; 96365; 99284; J1953

== ENCOUNTER 2021-09-10 13:45 | Emergency (ER) | payer MEDICAID ==
[2021-09-10] MEDS ORDERED: fentaNYL 100 MCG/2 ML SDV IVPUSH ONE ×2 (14:08→14:47)
[2021-09-10] MEDS ORDERED: Ampicillin/Sulbactam Na 3 GM in Sodium Chloride 0.9% 100 ML IV ONE (14:09)
[2021-09-10] MEDS ORDERED: fentaNYL 100 MCG/2 ML SDV ONE (14:41)
[2021-09-10 14:47] VITALS: BP 111/68; PULSE 117
[2021-09-10] MEDS ORDERED: methylPREDNISolone Sodium Succinate 125 MG/2 ML SDV IVPUSH ONE (14:57)
[2021-09-10] MEDS ORDERED: Lactated Ringers 1,000 ML IV SCH (15:00)
== END 2021-09-10 15:30 ==
LOC: JD.ED 13:45
DX: S01.551A Open bite of lip, initial encounter (principal); Z88.6 Allergy status to analgesic agent; Z88.8 Allergy status to other drugs, medicaments and biological substances; Z88.1 Allergy status to other antibiotic agents; W54.0XXA Bitten by dog, initial encounter
CPT/HCPCS: 36415; 80053; 84703; 85025; 96374; 96375; 96376; 99284; J0295; J2930; J3010; J7120

== ENCOUNTER 2022-02-27 16:43 | Emergency (ER) | payer MEDICAID ==
[2022-02-27] MEDS ORDERED: levETIRAcetam 1,500 MG in Sodium Chloride 0.9% 100 ML IV ONE (16:56)
[2022-02-27] MEDS ORDERED: Ondansetron 4 MG/2 ML SDV IVPUSH ONE (17:00)
[2022-02-27] MEDS ORDERED: Sodium Chloride 0.9% 1,000 ML IV ONE (17:00)
[2022-02-27] MEDS ORDERED: hydrOXYzine HCl 25 MG/ML SDV IM ONE (17:55)
[2022-02-27] MEDS ORDERED: cloNIDine 0.1 MG/Day Transdermal Patch TRDERM SCH (18:00)
[2022-02-27 21:37] LABS: CORONAVIRUS COVID-19 NAA NEGATIVE (NEGATIVE)
[2022-02-27] MEDS ORDERED: Cephalexin 500 MG Cap PO ONE (21:46)
[2022-02-27] MEDS ORDERED: Metoclopramide 10 MG/2 ML SDV IVPUSH ONE (21:49)
[2022-02-27 22:16] VITALS: BP 135/78; PULSE 89
== END 2022-02-27 22:15 ==
LOC: JD.ED 16:43
DX: O23.12 Infections of bladder in pregnancy, second trimester (principal); R56.9 Unspecified convulsions; E87.6 Hypokalemia; F11.23 Opioid dependence with withdrawal; Z3A.24 24 weeks gestation of pregnancy; F17.210 Nicotine dependence, cigarettes, uncomplicated; Z88.1 Allergy status to other antibiotic agents; Z91.018 Allergy to other foods; Z88.8 Allergy status to other drugs, medicaments and biological substances; Z88.6 Allergy status to analgesic agent; Z79.899 Other long term (current) drug therapy; Z90.49 Acquired absence of other specified parts of digestive tract; Z20.822 Contact with and (suspected) exposure to COVID-19
CPT/HCPCS: 0241U; 36415; 71045; 76815; 80053; 80306; 81001; 84702; 85025; 87086; 96361; 96365; 96372; 96375; 99284; A9270; J1953; J2405; J3410; J7030

== ENCOUNTER 2022-03-03 15:38 | Emergency (ER) | payer MEDICAID ==
[2022-03-03] MEDS ORDERED: LORazepam 0.5 MG Tab PO ONE (16:24)
[2022-03-03] MEDS ORDERED: Acetaminophen 325 MG Tab PO ONE (16:24)
[2022-03-03 16:31] LABS: ESTIMATED GFR 125 mL/min (>60)
[2022-03-03 18:33] VITALS: BP 113/65; PULSE 87
== END 2022-03-03 18:30 | disposition other institution (70) ==
LOC: JD.ED 15:38
DX: R07.89 Other chest pain (principal); R20.2 Paresthesia of skin; Z88.5 Allergy status to narcotic agent; Z88.8 Allergy status to other drugs, medicaments and biological substances; Z88.1 Allergy status to other antibiotic agents
CPT/HCPCS: 36415; 71045; 80053; 84484; 85025; 93005; 99285; A9270

== ENCOUNTER 2022-03-21 14:19 | Observation (INO) | payer MEDICAID ==
[2022-03-21] MEDS ORDERED: Acetaminophen 325 MG Tab PO PRN (15:04)
[2022-03-21 15:11] VITALS: BP 110/70; PULSE 152
[2022-03-21] MEDS ORDERED: Lactated Ringers 1,000 ML IV ONE (15:15)
[2022-03-21 15:49] LABS: ESTIMATED GFR 120 mL/min (>60)
[2022-03-21 16:27] LABS: CORONAVIRUS COVID-19 NAA POSITIVE (NEGATIVE)
[2022-03-21] MEDS ORDERED: Melatonin 3 MG Tab PO PRN (17:23)
[2022-03-21] MEDS ORDERED: REMDESIVIR 200 MG in Sodium Chloride 0.9% 250 ML IV ONE (17:30)
[2022-03-21] MEDS ORDERED: Enoxaparin 40 MG/0.4 ML Syringe SUBCUT ONE (17:30)
[2022-03-21] MEDS: Acetaminophen 325 MG Tab PO SCH (17:46)
[2022-03-21] MEDS: Docusate Sodium 100 MG Cap PO SCH (20:25)
[2022-03-21] MEDS: levETIRAcetam 500 MG Tab PO SCH (20:25)
[2022-03-22] MEDS: Acetaminophen 325 MG Tab PO SCH ×4 (00:04→17:25)
[2022-03-22] MEDS: Lactated Ringers 1,000 ML IV SCH ×2 (00:05→09:20)
[2022-03-22] MEDS: Docusate Sodium 100 MG Cap PO SCH (08:20)
[2022-03-22] MEDS: levETIRAcetam 500 MG Tab PO SCH (08:20)
[2022-03-22] MEDS ORDERED: Prenatal Multivitamin with Calcium/Folic Acid/Iron Tab PO SCH (09:00)
[2022-03-22] MEDS ORDERED: Benzocaine/Cetylpyridinium/Menthol Lozenge MUCMEM PRN (11:04)
[2022-03-22] MEDS ORDERED: REMDESIVIR 100 MG in Sodium Chloride 0.9% 250 ML IV SCH (17:30)
[2022-03-22] MEDS ORDERED: Enoxaparin 40 MG/0.4 ML Syringe SUBCUT SCH (17:30)
== END 2022-03-22 17:56 ==
LOC: JD.OBCHECK 14:19 → JD.OB 14:22 → JD.OBCHECK 16:47
PROVIDERS: ADMIT Obstetrics & Gynecology; ATTEND Obstetrics & Gynecology
DX: O98.512 Other viral diseases complicating pregnancy, second trimester (principal); U07.1 COVID-19; O99.891 Other specified diseases and conditions complicating pregnancy; O99.354 Diseases of the nervous system complicating childbirth; R51.9 Headache, unspecified; K59.00 Constipation, unspecified; F41.9 Anxiety disorder, unspecified; F32.A Depression, unspecified; G40.909 Epilepsy, unspecified, not intractable, without status epilepticus; Z3A.27 27 weeks gestation of pregnancy; Z88.8 Allergy status to other drugs, medicaments and biological substances; Z91.018 Allergy to other foods; Z88.1 Allergy status to other antibiotic agents; Z79.899 Other long term (current) drug therapy
CPT/HCPCS: 0241U; 36415; 59025; 76816; 76819; 80053; 81001; 85025; 96361; 96365; 96366; 96372; A9270; G0378; J1650; J7050; J7120

== ENCOUNTER 2022-12-14 16:43 | Emergency (ER) | payer SELFPAY ==
[2022-12-14 16:57] VITALS: PULSE 114
[2022-12-14 17:29] LABS: BASOPHILS ABSOLUTE AUTO 0.02 K/mm3 (0.01-0.08); BASOPHILS PERCENT AUTO 0.2 % (0.1-1.2); EOSINOPHILS ABSOLUTE AUTO 0.36 K/mm3 (0.04-0.36); EOSINOPHILS PERCENT AUTO 3.3 (0.7-5.8); HEMATOCRIT 39.5 % (34.1-44.9); HEMOGLOBIN 13.8 gm/dl (11.2-15.7); IMMATURE GRAN ABSOLUTE AUTO 0.02 K/mm3 (0.00-0.10); IMMATURE GRAN PERCENT AUTO 0.2 % (<=1.0); LYMPHOCYTES ABSOLUTE AUTO 3.69 K/mm3 (1.18-3.74); MEAN CORPUSCULAR HEMOGLOBIN 30.9 pg (25.6-32.2); MEAN CORPUSCULAR HGB CONC 34.9 g/dl (32.2-35.5); MEAN CORPUSCULAR VOLUME 88.6 fl (79.4-94.8); MEAN PLATELET VOLUME 11.4 fl (9.4-12.3); MONOCYTES ABSOLUTE AUTO 1.78 K/mm3 (0.24-0.36); MONOCYTES PERCENT AUTO 16.4 % (4.7-12.5); NEUTROPHILS ABSOLUTE AUTO 4.99 K/mm3 (1.56-6.13); NEUTROPHILS PERCENT AUTO 45.9 % (34.0-71.1); PLATELET COUNT,PLT 514 K/mm3 (182-369); RED BLOOD CELL COUNT 4.46 M/mm3 (3.98-5.22); WHITE BLOOD CELL COUNT,WBC 10.86 K/mm3 (3.98-10.04)
[2022-12-14 17:37] LABS: A/G RATIO 0.8 (1-2); ALBUMIN 3.1 g/dl (3.4-5.0); ANION GAP 11.5 (5-15); BILIRUBIN TOTAL 0.9 mg/dL (0.2-1.0); BUN/CREATININE RATIO 13.3 (14-18); CALCIUM 8.7 mg/dL (8.5-10.1); CREATININE 0.6 mg/dL (0.55-1.02); EST CRCL DRUG DOSING (CG) 121.35 mL/min; POTASSIUM,K 3.5 mEq/L (3.5-5.1); PROTEIN TOTAL,TP 6.9 g/dl (6.4-8.2)
[2022-12-14 17:57] LABS: BARBITURATE SCREEN,URINE NEGATIVE (CUTOFF=200); BENZODIAZEPINES SCREEN,URINE PRESUMPTIVE POSITIVE (CUTOFF=150); BUPRENORPHINE SCREEN,URINE NEGATIVE (CUTOFF=10); METHADONE SCREEN, URINE NEGATIVE (CUTOFF=200); METHAMPHETAMINES SCREEN, URINE PRESUMPTIVE POSITIVE (CUTOFF=500); OXYCODONE SCREEN,URINE NEGATIVE (CUT0FF=100); PROPOXYPHENE SCREEN,URINE NEGATIVE (CUTOFF=300); THC SCREEN,URINE 20 NG/ML NEGATIVE (CUTOFF=50)
[2022-12-14 18:07] LABS: AMPHETAMINES SCREEN, URINE NEGATIVE (CUTOFF=500)
[2022-12-14 19:24] VITALS: BP 116/60
== END 2022-12-14 18:30 | disposition home or self-care (01) ==
LOC: JD.ED 16:43
DX: F19.10 Other psychoactive substance abuse, uncomplicated (principal); G40.909 Epilepsy, unspecified, not intractable, without status epilepticus; Z79.899 Other long term (current) drug therapy; Z88.8 Allergy status to other drugs, medicaments and biological substances; Z88.1 Allergy status to other antibiotic agents; Z88.6 Allergy status to analgesic agent; Z88.5 Allergy status to narcotic agent; Z91.018 Allergy to other foods
CPT/HCPCS: 36415; 80053; 80306; 80307; 81025; 82947; 85025; 99283; 99284

== ENCOUNTER 2025-03-19 16:17 | Emergency (ER) | payer OTHER ==
[2025-03-19] MEDS: levETIRAcetam 500 MG/5 ML SDV IVPUSH ONE (17:35)
[2025-03-19] MEDS: Sodium Chloride 0.9% 10 ML Syringe FLUSH PRN (17:36)
[2025-03-19 17:50] LABS: BASOPHILS ABSOLUTE AUTO 0.0 K/mm3 (0.0-0.2); BASOPHILS PERCENT AUTO 0.3 % (0.0-1.0); EOSINOPHILS ABSOLUTE AUTO 0.0 K/mm3 (0.0-0.4); EOSINOPHILS PERCENT AUTO 0.3 % (0.0-6.0); IMMATURE GRAN ABSOLUTE AUTO 0.04 K/mm3 (0.00-0.05); IMMATURE GRAN PERCENT AUTO 0.3 % (0.0-0.4); LYMPHOCYTES ABSOLUTE AUTO 3.2 K/mm3 (1.0-4.8); LYMPHOCYTES PERCENT AUTO 23.8 % (24.0-44.0); MEAN PLATELET VOLUME 10.8 fl (9.4-12.3); MONOCYTES ABSOLUTE AUTO 0.7 K/mm3 (0.0-0.8); MONOCYTES PERCENT AUTO 5.0 % (0.0-8.0); NEUTROPHILS ABSOLUTE AUTO 9.5 K/mm3 (1.8-7.7); NEUTROPHILS PERCENT AUTO 70.3 % (41.0-71.0); NRBC ABSOLUTE 0.02 (0.00-0.02); NRBC PERCENT 0.1 % (0.0-0.2); PLATELET COUNT,PLT 585 K/mm3 (150-400); RED BLOOD CELL COUNT 5.09 M/mm3 (4.10-5.30); WHITE BLOOD CELL COUNT,WBC 13.54 K/mm3 (3.9-11.3)
[2025-03-19 18:15] LABS: A/G RATIO 0.8 (1-2); ALANINE AMINOTRANSFERASE,ALT 59.0 U/L (14-59); ASPARTATE AMNIOTRANSFERASE,AST 70.0 U/L (15-37); BILIRUBIN TOTAL 1.0 mg/dL (0.2-1.0); BLOOD UREA NITROGEN,BUN 6.0 mg/dL (7-18); CARBON DIOXIDE,CO2 28.0 mEq/L (21-32); CHLORIDE,CL 101.0 mEq/L (98-107); CREATININE 0.7 mg/dL (0.55-1.02); EST CRCL DRUG DOSING (CG) 102.01 mL/min; ESTIMATED GFR 113.0 mL/min (>60); GLUCOSE RANDOM 159.0 mg/dL (70-99); POTASSIUM,K 4.1 mEq/L (3.5-5.1); PROTEIN TOTAL,TP 8.1 g/dl (6.4-8.2); SODIUM,NA 138.0 mEq/L (136-145); TROPONIN I HIGH SENSITIVITY 5.0 pg/mL (<=51); TSH 0.788 uIU/mL (0.358-3.74)
[2025-03-19 18:35] LABS: ETHANOL BLOOD MEDICAL 0.0 gm% (0.00)
[2025-03-19 20:17] VITALS: PULSE 78
[2025-03-19 20:18] VITALS: BP 127/86
== END 2025-03-19 20:00 | disposition home or self-care (01) ==
LOC: JD.ED 16:17
DX: R56.9 Unspecified convulsions (principal); R51.9 Headache, unspecified; R07.81 Pleurodynia; F19.90 Other psychoactive substance use, unspecified, uncomplicated; Z88.5 Allergy status to narcotic agent; Z91.018 Allergy to other foods; Z88.8 Allergy status to other drugs, medicaments and biological substances; Z88.1 Allergy status to other antibiotic agents; Z79.899 Other long term (current) drug therapy; Z91.148 Patient's other noncompliance with medication regimen for other reason
CPT/HCPCS: 36415; 70450; 71101; 72125; 80053; 80143; 80179; 80307; 83690; 83735; 84443; 84484; 84703; 85025; 93005; 96361; 96365; 99284; A9270; J1953; J7030